=== PATIENT | male | born 1955 | race Caucasian/White ===

== ENCOUNTER → 2016-11-12 | Outpatient (REF) | payer BC ==
[2016-11-12 11:32] LABS: ALBUMIN 3.7 GM/DL (3.2-5.2); ALKALINE PHOSPHATASE 89 U/L (45-117); ALT/SGPT 77 U/L (12-78); ANION GAP 7 MEQ/L (8-16); AST/SGOT 35 U/L (15-37); BILIRUBIN,TOTAL 0.4 MG/DL (0.2-1.0); BLOOD UREA NITROGEN 19 MG/DL (7-18); CALCIUM LEVEL 8.8 MG/DL (8.8-10.2); CARBON DIOXIDE LEVEL 30 MEQ/L (21-32); CHLORIDE LEVEL 104 MEQ/L (98-107); CHOLESTEROL LEVEL 164 MG/DL (<200); CREATININE FOR GFR 1.08 MG/DL (0.70-1.30); GLOMERULAR FILTRATION RATE > 60.0 (>49); GLUCOSE, FASTING 106 MG/DL (80-110); MAGNESIUM LEVEL 1.9 MG/DL (1.8-2.4); POTASSIUM SERUM 4.4 MEQ/L (3.5-5.1); SODIUM LEVEL 141 MEQ/L (136-145); TOTAL PROTEIN 7.4 GM/DL (6.4-8.2); TRIGLYCERIDES LEVEL 88 MG/DL (<150)
== END ==
LOC: M SFHCPLAZ 08:00
PROVIDERS: ATTEND Internal Medicine
DX: I10 Essential (primary) hypertension (principal); E78.00 Pure hypercholesterolemia, unspecified; G47.30 Sleep apnea, unspecified

== ENCOUNTER → 2017-02-06 | Outpatient (CLI) | payer BC ==
--- NOTE | 2017-02-06 11:11 | REP ---
LUMBAR SPINE, FIVE VIEWS: HISTORY: Left sciatica. There is no acute fracture. The L3-4 through L5-S1 intervertebral discs are decreased in height. Vacuum phenomenon is present at the L4-5 and L5-S1 levels. Osteophytes are present on L3 through L5. There is narrowing of the L5-S1 facet joints. IMPRESSION: Degenerative change as described above. Signed by Lion Shah MD 02/06/2017 11:12 A
== END ==
LOC: M RAD 10:14
PROVIDERS: ATTEND Nurse Practitioner Adult Health
DX: M54.32 Sciatica, left side (principal)

== ENCOUNTER → 2017-05-08 | Outpatient (REF) | payer BC ==
[2017-05-08 11:50] LABS: MEAN CORPUSCULAR HGB CONC 34.3 g/dl (32.0-36.5); MEAN CORPUSCULAR VOLUME 93.2 fl (80.0-96.0); PLATELET COUNT, AUTOMATED 165 10^3/uL (150-450); RED CELL DISTRIBUTION WIDTH 13.3 % (11.5-14.5); WHITE BLOOD COUNT 5.8 10^3/uL (4.0-10.0)
[2017-05-08 13:02] LABS: ALBUMIN 3.8 GM/DL (3.2-5.2); ALKALINE PHOSPHATASE 87 U/L (45-117); ALT/SGPT 122 U/L (12-78); ANION GAP 8 MEQ/L (8-16); AST/SGOT 61 U/L (15-37); BILIRUBIN,TOTAL 0.9 MG/DL (0.2-1.0); BLOOD UREA NITROGEN 16 MG/DL (7-18); CARBON DIOXIDE LEVEL 27 MEQ/L (21-32); CHLORIDE LEVEL 106 MEQ/L (98-107); CHOLESTEROL LEVEL 142 MG/DL (<200); CREATININE FOR GFR 0.91 MG/DL (0.70-1.30); GLOMERULAR FILTRATION RATE > 60.0 (>49); GLUCOSE, FASTING 95 MG/DL (80-110); MAGNESIUM LEVEL 1.9 MG/DL (1.8-2.4); POTASSIUM SERUM 4.6 MEQ/L (3.5-5.1); SODIUM LEVEL 141 MEQ/L (136-145); TOTAL PROTEIN 7.6 GM/DL (6.4-8.2); TRIGLYCERIDES LEVEL 89 MG/DL (<150)
== END ==
LOC: M SFHCPLAZ 09:15
PROVIDERS: ATTEND Internal Medicine
DX: G47.30 Sleep apnea, unspecified (principal); I10 Essential (primary) hypertension; E78.00 Pure hypercholesterolemia, unspecified

== ENCOUNTER → 2017-07-27 | Outpatient (CLI) | payer BC ==
[2017-07-27 10:53] LABS: HEMOGLOBIN 18.4 g/dl (14.0-18.0)
[2017-07-27 11:17] LABS: ANION GAP 4 MEQ/L (8-16); BLOOD UREA NITROGEN 18 MG/DL (7-18); CARBON DIOXIDE LEVEL 29 MEQ/L (21-32); CHLORIDE LEVEL 108 MEQ/L (98-107); CREATININE FOR GFR 0.92 MG/DL (0.70-1.30); GLOMERULAR FILTRATION RATE > 60.0 (>49); GLUCOSE, FASTING 130 MG/DL (80-110); POTASSIUM SERUM 4.7 MEQ/L (3.5-5.1); SODIUM LEVEL 141 MEQ/L (136-145)
== END ==
LOC: M ADMPAT 09:27
DX: M54.5 Low back pain (principal)
CPT/HCPCS: 71046

== ENCOUNTER 2017-09-14 05:49 | Day surgery (SDC) | payer BC ==
[2017-09-14] MEDS: PERCOCET 5MG/325MG TAB PO ×2 (06:33→20:41)
[2017-09-14] MEDS: LR 1,000 ML IV ×2 (06:33→11:15)
[2017-09-14] MEDS: GABAPENTIN 300 MG CAP PO ×3 (06:33→20:36)
[2017-09-14] MEDS ORDERED: ROCURONIUM BROMIDE 50 MG/5 ML VIAL As Ordered (07:12)
[2017-09-14] MEDS ORDERED: MIDAZOLAM INJ 2 MG/2 ML VIAL (J2250) As Ordered (07:12)
[2017-09-14] MEDS ORDERED: LIDOCAINE 2% INJ 100 MG/5 ML SDV (FOR ANES.) As Ordered (07:12)
[2017-09-14] MEDS ORDERED: dexameTHASONE 4 MG/ML 1ML VIAL (J1100) As Ordered (07:12)
[2017-09-14] MEDS ORDERED: fentaNYL 250 MCG/5 ML INJECTION (J3010) As Ordered (07:12)
[2017-09-14] MEDS ORDERED: PROPOFOL 200 MG/20 ML VIAL As Ordered (07:12)
[2017-09-14] MEDS: BUPIVACAINE HCL 0.25% 30 ML VIAL As Ordered (08:24)
[2017-09-14] MEDS ORDERED: ePHEDrine INJ 50 MG/ML VIAL As Ordered (08:47)
[2017-09-14] MEDS ORDERED: PHENYLephrine HCL 500 MCG/5 ML (100MCG/ML) SYRINGE (J2370) As Ordered (08:48)
[2017-09-14] MEDS ORDERED: PHENYLEPHRINE INJ 10MG/ML VIAL (J2370) As Ordered (08:48)
[2017-09-14] MEDS ORDERED: NEOSTIGMINE 10 MG/10 ML VIAL (J2710) As Ordered (09:17)
[2017-09-14] MEDS ORDERED: HYDROmorphone HCL 2 MG/ML 1ML VIAL (J1170) As Ordered (09:17)
[2017-09-14] MEDS ORDERED: METOCLOPRAMIDE INJ 10MG/2ML VIAL (J2765) As Ordered (09:17)
[2017-09-14] MEDS ORDERED: GLYCOPYRROLATE INJ 0.2 MG/ML 2 ML VIAL As Ordered (09:17)
[2017-09-14] MEDS: LIDOCAINE W/EPINEPHRINE 1% 20ML VIAL As Ordered (09:24)
[2017-09-14] MEDS: THROMBIN SOLN 20,000 UNITS KIT As Ordered (10:08)
[2017-09-14] MEDS: BACITRACIN PWD 50,000 UNITS VIAL As Ordered (10:08)
[2017-09-14] MEDS: BUPIVACAINE LIPOSOME/PF 1.3% 20 ML VIAL (13.3MG/ML)(EXPAREL) As Ordered (10:35)
[2017-09-14] MEDS ORDERED: fentaNYL 100 MCG/2 ML INJECTION (J3010) As Ordered (11:07)
[2017-09-14] MEDS ORDERED: PERCOCET 5MG/325MG TAB PO ×3 (11:15→14:30)
[2017-09-14] MEDS ORDERED: HYDROmorphone HCL 1 MG/ML SYRINGE (J1170) IV ×2 (11:15→11:30)
[2017-09-14] MEDS ORDERED: PROMETHAZINE INJ 25 MG/ML VIAL (J2550) IV (11:15)
[2017-09-14] MEDS ORDERED: ONDANSETRON 4MG/2ML VIAL (J2405) IV (11:15)
[2017-09-14] MEDS: fentaNYL 100 MCG/2 ML INJECTION (J3010) IV ×4 (11:16→11:36)
[2017-09-14] MEDS: D5W/LR 1,000 ML IV ×2 (11:30→21:30)
[2017-09-14] MEDS: METAMUCIL (PSYLLIUM) PACKET PO (14:49)
[2017-09-14] MEDS: METOPROLOL TART 25 MG TABLET PO (20:39)
[2017-09-15] MEDS: PERCOCET 5MG/325MG TAB PO (04:46)
[2017-09-15] MEDS: LISINOPRIL 20 MG TAB PO (09:23)
[2017-09-15] MEDS: METOPROLOL TART 25 MG TABLET PO (09:23)
[2017-09-15] MEDS: CYCLOBENZAPRINE 10 MG TAB PO (09:23)
[2017-09-15] MEDS: ASPIRIN 81 MG ENTERIC TAB PO (09:23)
[2017-09-15] MEDS: amLODIPine 5 MG TAB PO (09:24)
[2017-09-15] MEDS: PANTOPRAZOLE 40MG TAB (PROTONIX) PO (09:24)
[2017-09-15] MEDS: SERTRALINE 100 MG TAB PO (09:24)
[2017-09-15] MEDS: METAMUCIL (PSYLLIUM) PACKET PO (09:25)
[2017-09-15] MEDS: GABAPENTIN 300 MG CAP PO (09:25)
[2017-09-17] MEDS ORDERED: APIXABAN 5 MG TAB (ELIQUIS) PO (09:00)
== END 2017-09-15 10:15 | disposition home or self-care (01) ==
LOC: M SDC 05:49 → M MS5PR 13:05
DX: M51.16 Intervertebral disc disorders with radiculopathy, lumbar region (principal); I10 Essential (primary) hypertension; I25.10 Atherosclerotic heart disease of native coronary artery without angina pectoris; E78.00 Pure hypercholesterolemia, unspecified; B18.2 Chronic viral hepatitis C; R73.01 Impaired fasting glucose; K21.9 Gastro-esophageal reflux disease without esophagitis; G47.33 Obstructive sleep apnea (adult) (pediatric); Z91.041 Radiographic dye allergy status; Z79.899 Other long term (current) drug therapy; Z79.01 Long term (current) use of anticoagulants; Z85.47 Personal history of malignant neoplasm of testis; Z92.21 Personal history of antineoplastic chemotherapy; Z86.79 Personal history of other diseases of the circulatory system; Z86.59 Personal history of other mental and behavioral disorders
CPT/HCPCS: 63030

== ENCOUNTER → 2018-01-21 | Outpatient (REF) | payer BC ==
[2018-01-21 12:18] LABS: ALBUMIN 3.4 GM/DL (3.2-5.2); ALBUMIN/GLOBULIN RATIO 0.89 (1.00-1.93); ALKALINE PHOSPHATASE 85 U/L (45-117); ALT/SGPT 48 U/L (12-78); AST/SGOT 23 U/L (7-37); BILIRUBIN,DIRECT 0.1 MG/DL (0.0-0.2); BILIRUBIN,TOTAL 0.5 MG/DL (0.2-1.0); TOTAL PROTEIN 7.2 GM/DL (6.4-8.2)
[2018-01-25 11:01] LABS: HEPATITIS C QUANTITATION HCV Not Detected IU/mL (.)
== END ==
LOC: M SFHCPLAZ 08:26
DX: B18.2 Chronic viral hepatitis C (principal)
CPT/HCPCS: 80076

== ENCOUNTER → 2018-03-08 | Outpatient (REF) | payer BC ==
[2018-03-08 12:44] LABS: ALBUMIN 3.7 GM/DL (3.2-5.2); ALBUMIN/GLOBULIN RATIO 0.95 (1.00-1.93); ALKALINE PHOSPHATASE 78 U/L (45-117); ALT/SGPT 44 U/L (12-78); ANION GAP 8 MEQ/L (8-16); AST/SGOT 24 U/L (7-37); BILIRUBIN,TOTAL 0.5 MG/DL (0.2-1.0); BLOOD UREA NITROGEN 15 MG/DL (7-18); CARBON DIOXIDE LEVEL 27 MEQ/L (21-32); CHLORIDE LEVEL 106 MEQ/L (98-107); CHOLESTEROL LEVEL 265 MG/DL (<200); CHOLESTEROL RISK RATIO 8.281 (<5); GLOMERULAR FILTRATION RATE > 60.0 (>49); GLUCOSE, FASTING 98 MG/DL (70-100); HDL CHOLESTEROL 32 MG/DL (>40); LDL CHOLESTEROL 187.6 MG/DL (<100); MAGNESIUM LEVEL 1.9 MG/DL (1.8-2.4); NON-HDL-C 233 MG/DL; POTASSIUM SERUM 4.8 MEQ/L (3.5-5.1); SODIUM LEVEL 141 MEQ/L (136-145); TOTAL PROTEIN 7.6 GM/DL (6.4-8.2); TRIGLYCERIDES LEVEL 227 MG/DL (<150)
[2018-03-08 12:54] LABS: HEMATOCRIT 53.8 % (42.0-52.0); HEMOGLOBIN 18.6 g/dl (13.5-17.5); MEAN CORPUSCULAR HEMOGLOBIN 32.3 pg (27.0-33.0); MEAN CORPUSCULAR HGB CONC 34.6 g/dl (32.0-36.5); MEAN CORPUSCULAR VOLUME 93.4 fl (80.0-96.0); PLATELET COUNT, AUTOMATED 150 10^3/uL (150-450); RED BLOOD COUNT 5.76 10^6/uL (4.30-6.10); RED CELL DISTRIBUTION WIDTH 13.8 % (11.5-14.5)
== END ==
LOC: M SFHCPLAZ 09:42
DX: I25.10 Atherosclerotic heart disease of native coronary artery without angina pectoris (principal); I10 Essential (primary) hypertension; E78.00 Pure hypercholesterolemia, unspecified; G47.30 Sleep apnea, unspecified
CPT/HCPCS: 83735

== ENCOUNTER → 2018-04-12 | Outpatient (REF) | payer BC | LOC: M SFHCLERA 09:12 | DX: R23.8 Other skin changes (principal) | CPT/HCPCS: 88305 ==

== ENCOUNTER → 2020-06-25 | Outpatient (REF) | payer MEDICARE ==
[~2020-06-25] MED LIST: AMLO1TAB24 PO; ASPI81TAEC PO; ATOR1TAB21 PO; ELIQ5TAB PO; FOLI1TAB11 PO; LISI-538 PO; METO1TAB87 PO; METO25TA4 PO; MULT200T7 PO; PANT40TA29 PO; SERT-138 PO
[2020-06-25 14:01] LABS: HEMATOCRIT 51.7 % (42.0-52.0); HEMOGLOBIN 17.2 g/dl (13.5-17.5); MEAN CORPUSCULAR HEMOGLOBIN 31.2 pg (27.0-33.0); MEAN CORPUSCULAR HGB CONC 33.3 g/dl (32.0-36.5); MEAN CORPUSCULAR VOLUME 93.7 fl (80.0-96.0); PLATELET COUNT, AUTOMATED 173 10^3/uL (150-450); RED BLOOD COUNT 5.52 10^6/uL (4.30-6.10); WHITE BLOOD COUNT 7.8 10^3/uL (4.0-10.0)
[2020-06-25 14:38] LABS: ALBUMIN 3.9 GM/DL (3.2-5.2); ALT/SGPT 45 U/L (12-78); BILIRUBIN,TOTAL 0.3 MG/DL (0.2-1.0); BLOOD UREA NITROGEN 20 MG/DL (7-18); CALCIUM LEVEL 9.2 MG/DL (8.8-10.2); CARBON DIOXIDE LEVEL 28 MEQ/L (21-32); CHLORIDE LEVEL 106 MEQ/L (98-107); CHOLESTEROL LEVEL 159 MG/DL (<200); CHOLESTEROL RISK RATIO 4.676 (<5); CREATININE FOR GFR 1.11 MG/DL (0.70-1.30); GLOMERULAR FILTRATION RATE > 60.0 (>49); GLUCOSE, FASTING 103 MG/DL (70-100); HDL CHOLESTEROL 34 MG/DL (>40); LDL CHOLESTEROL 94 MG/DL (<100); NON-HDL-C 125 MG/DL; POTASSIUM SERUM 5.2 MEQ/L (3.5-5.1); SODIUM LEVEL 138 MEQ/L (136-145); TOTAL PROTEIN 7.4 GM/DL (6.4-8.2); TRIGLYCERIDES LEVEL 153 MG/DL (<150)
== END ==
LOC: M SFHCPLAZ 08:07
PROVIDERS: ATTEND Internal Medicine
DX: D75.1 Secondary polycythemia (principal); I10 Essential (primary) hypertension; E78.00 Pure hypercholesterolemia, unspecified; Z12.5 Encounter for screening for malignant neoplasm of prostate
CPT/HCPCS: 36415; 80053; 80061; 83735; 85027; G0103

== ENCOUNTER → 2020-12-31 | Outpatient (REF) | payer MEDICARE ==
[~2020-12-31] MED LIST changes: +ASPI-569 PO; -ASPI81TAEC PO; -LISI-538 PO; +LISI20TA33 PO
[2020-12-31 10:58] LABS: BASO % 0.2 % (0.0-1.0); EOS # 0.3 10^3/uL (0.0-0.5); EOS % 3.4 % (0.0-3.0); HEMATOCRIT 50.8 % (42.0-52.0); HEMOGLOBIN 17.5 g/dl (13.5-17.5); LYMPH # 1.6 10^3/uL (1.5-5.0); LYMPH % 19.1 % (24.0-44.0); MEAN CORPUSCULAR HEMOGLOBIN 31.4 pg (27.0-33.0); MEAN CORPUSCULAR HGB CONC 34.4 g/dl (32.0-36.5); MONO # 0.8 10^3/uL (0.0-0.8); MONO % 9.9 % (2.0-8.0); NEUTROPHILS # 5.6 10^3/uL (1.5-8.5); PLATELET COUNT, AUTOMATED 185 10^3/uL (150-450); RED BLOOD COUNT 5.58 10^6/uL (4.30-6.10); WHITE BLOOD COUNT 8.3 10^3/uL (4.0-10.0)
[2020-12-31 11:27] LABS: ALBUMIN 3.8 GM/DL (3.2-5.2); ALT/SGPT 26 U/L (12-78); BILIRUBIN,TOTAL 0.5 MG/DL (0.2-1.0); BLOOD UREA NITROGEN 17 MG/DL (7-18); CALCIUM LEVEL 8.7 MG/DL (8.8-10.2); CARBON DIOXIDE LEVEL 26 MEQ/L (21-32); CHLORIDE LEVEL 107 MEQ/L (98-107); CHOLESTEROL LEVEL 157 MG/DL (<200); CHOLESTEROL RISK RATIO 4.485 (<5); CREATININE FOR GFR 0.88 MG/DL (0.70-1.30); GLOMERULAR FILTRATION RATE > 60.0 (>49); GLUCOSE, FASTING 99 MG/DL (70-100); HDL CHOLESTEROL 35 MG/DL (>40); LDL CHOLESTEROL 86 MG/DL (<100); MAGNESIUM LEVEL 1.9 MG/DL (1.8-2.4); NON-HDL-C 122 MG/DL; POTASSIUM SERUM 4.3 MEQ/L (3.5-5.1); SODIUM LEVEL 140 MEQ/L (136-145); TOTAL PROTEIN 7.6 GM/DL (6.4-8.2); TRIGLYCERIDES LEVEL 180 MG/DL (<150)
[2020-12-31 12:05] LABS: HEMOGLOBIN A1c 5.8 %
== END ==
LOC: M SFHCPLAZ 08:04
PROVIDERS: ATTEND Internal Medicine
DX: Z12.5 Encounter for screening for malignant neoplasm of prostate (principal); D75.1 Secondary polycythemia; I10 Essential (primary) hypertension; R73.01 Impaired fasting glucose; E78.00 Pure hypercholesterolemia, unspecified
CPT/HCPCS: 36415; 80053; 80061; 83036; 83735; 85025; G0103

== ENCOUNTER → 2021-03-06 | Outpatient (CLI) | payer MEDICARE ==
--- NOTE | 2021-03-06 10:14 | REP ---
INDICATION: TOBACCO DEPENDENCE COMPARISON: None. TECHNIQUE: Axial noncontrast images from the thoracic inlet to the upper abdomen using low-dose lung screening technique (LDCT). FINDINGS: Chronic age-related changes are appreciated. Calcified nodule identified in consistent with prior granulomatous disease. There is a 4 mm noncalcified nodule in the left lower lobe (series 201; image 68). No further suspicious nodule, consolidation or mass. No effusion. No pneumothorax. Limited evaluation of the mediastinum demonstrates extensive atherosclerotic disease and cardiomegaly. IMPRESSION: Lung-RADS category 2. Management recommendations include 12 month low-dose CT follow-up evaluation. <Electronically signed by Alexander Meza > 03/06/21 1019
== END ==
LOC: M RAD 09:44
PROVIDERS: ATTEND Internal Medicine
DX: Z12.2 Encounter for screening for malignant neoplasm of respiratory organs (principal); F17.210 Nicotine dependence, cigarettes, uncomplicated

== ENCOUNTER → 2021-06-26 | Outpatient (CLI) | payer MEDICARE ==
[~2021-06-26] MED LIST changes: +ASPI81TA26 PO; +ROSU10TA6 PO; +ZOLO100T PO
== END ==
LOC: M LABSMTC 11:04
PROVIDERS: ATTEND Anesthesiology
DX: Z01.812 Encounter for preprocedural laboratory examination (principal); Z20.822 Contact with and (suspected) exposure to COVID-19

== ENCOUNTER 2021-07-01 08:01 | Day surgery (SDC) | payer MEDICARE ==
[~2021-07-01] VITALS: Ht 167.6 cm; Wt 85.3 kg
[~2021-07-01 08:01] MED LIST changes: +LIDOCAINE 2% 100MG/5ML SDV (FOR ANES.) As Ordered ONE; +NS 1,000 ML IV ONE; +propofoL 200 MG/20 ML VIAL As Ordered ONE
--- OUTSIDE RECORDS SUMMARY | 2021-07-01 08:05 | CCD | Continuity of Care Document ---
Author Author Duane PEREZ Organization Unknown Address [address], [address] [place] [address] Phone [phone] Care Team Providers Care Contact Lens Inspector Name Role Phone Tyron Stewart M.D. AUTM [phone] Problems Active Problems Provider Date Obesity Maricarmen Ventura, A.N.PHa Onset: 03/15/2012 Body mass index 30+ - obesity Maricarmen Ventura A.N.PHa Onset: Ex-smoker Maricarmen Ventura A.N.P. Onset: 03/17/2011 Obstructive sleep apnea syndrome Maricarmen Ventura, A.N.PHa Onset: 03/10/2011 Essential hypertension MELISSA Collins Onset: 05/14/2021 Social History Type Date Description Comments Sex Unknown ETOH Use 5 A Week Tobacco Use Start: Unknown End: Unknown Patient is a former smoker Recreational Drug Use Denies Drug Use Smoking Status Reviewed: 08/16/20 Patient is a former smoker Allergies and adverse reactions Active Allergies Criticality Reaction | Severity Comments Date Iodinated Diagnostic Agents Unable to assess criticality 07/26/2014 Medications Active Medications SIG Qnty Indications Ordering Provide r Date CPAP Device 8cm LCW Unknown 02/25/2010 Aspirin 325mg Tablets 1 po qd Unknown Lipitor 10mg Tablets 1 po M/W/F only at hs Unknown Folic Acid 1mg Tablets 1 by mouth every day 90tabs Unknown Lisinopril 20mg Tablets 1 by mouth every day Unknown Metoprolol Tartrate 50mg Tablets 1 by mouth every day Unknown Eliquis 5mg Tablets 1 by mouth twice a day Unknown Rosuvastatin Calcium 40mg Tablets Take One Tablet By Mouth Every Day Unknown Sertraline HCL 100mg Tablets Take One Tablet By Mouth Every Day Unknown Amlodipine Besylate 5mg Tablets Take One Tablet By Mouth Twice A Day Unknown Protonix 40mg Tablets DR take one tablet by mouth twice a day Unknown Immunizations CPT Code Status Date Vaccine Lot # 41259 Given 05/24/2014 Influenza Virus Split 3 Yrs And Above For Intramuscular Use Q2036 Given 04/23/2011 Influenza Vaccine 3 Years Of Age Or Older (Flulaval) 07407 Given 05/24/2010 Influenza Virus Split 3 Yrs And Above For Intramuscular Use Vital Signs Date Vital Result Comment 05/14/2021 10:01am BP Systolic 147 mmHg BP Diastolic 83 mmHg Heart Rate 56 /min Body Temperature 98.7 F Height 67 inches 5'7" Weight 189.12 lb BMI (Body Mass Index) 29.6 kg/m2 [place] Body Weight 148 lb Weight 85.787 kg BSA (Body Surface Area) 1.97 m2 08/16/2020 2:21pm BP Systolic 118 mmHg BP Diastolic 84 mmHg Heart Rate 87 /min O2 % BldC Oximetry 96 % Body Temperature 96.9 F Height 67 inches 5'7" Weight 197.00 lb BMI (Body Mass Index) 30.9 kg/m2 [place] Body Weight 148 lb Weight 89.359 kg BSA (Body Surface Area) 2.01 m2 Results Description No Information Available Procedures Description No Information Available Medical Devices Description No Information Available Encounters Description No Information Available Assessments Date Code Description Provider 05/14/2021 Z12.11 Encounter for screening for jeanne gnant neoplasm of colon MELISSA Collins Plan of Treatment Future Appointment(s):* 08/20/2021 8:30 am - Caroline Nicolas at [facility] Pulmonary/Thoracic 05/14/2021 - MELISSA Collins* Z12.11 Encounter for screening for malignant neoplasm of colon Functional Status Description No Information Available Mental Status Description No Information Available Referrals Description No Information Available
--- OUTSIDE RECORDS SUMMARY | 2021-07-01 08:05 | CCD | Continuity of Care Document ---
Author Author Duane PEREZ Organization Unknown Address [address], [address] [place] [address] Phone [phone] Care Team Providers Care Stockkeeper Name Role Phone Tyron Stewart M.D. AUTM [phone] Alfredo Parker M.D. AUTM [phone] Problems Active Problems Provider Date Obesity Maricarmen Ventura A.N.PHa Onset: 03/15/2012 Body mass index 30+ - obesity Maricarmen Ventura A.N.PHa Onset: Ex-smoker Maricarmen Ventura A.N.Meghan Onset: 03/17/2011 Obstructive sleep apnea syndrome Maricarmen Ventura A.NJil Onset: 03/10/2011 Essential hypertension MELISSA Collins Onset: [...] CPT Code Status Date Vaccine Lot # [id number] Given 05/24/2014 Influenza Virus Split 3 Yrs And Above For Intramuscular Use Q2036 Given 04/23/2011 Influenza Vaccine 3 Years Of Age Or Older (Flulaval) 72904 Given 05/24/2010 Influenza Virus Split 3 Yrs And Above For Intramuscular Use Vital Signs Date Vital Result Comment 05/14/2021 10:01am BP Systolic 147 mmHg BP Diastolic 83 mmHg Heart Rate 56 /min Body Temperature 98.7 F Height 67 inches 5'7" Weight 189.12 lb BMI (Body Mass Index) 29.6 kg/m2 [place] Body Weight 148 lb Weight 85.787 kg BSA (Body Surface Area) 1.97 m2 08/16/2020 2:21pm BP Systolic 118 mmHg BP Diastolic 84 mmHg Heart Rate 87 /min O2 % BldC Oximetry 96 % Body Temperature 96.9 F Height 67 inches 5'7" Weight 197.00 lb BMI (Body Mass Index) 30.9 kg/m2 [place] Body Weight 148 lb Weight 89.359 kg BSA (Body Surface Area) 2.01 m2 Results Description No Information Available Procedures Date Code Description Status 05/14/2021 29689 Office/Outpatient New Moderate M DM 45-59 Minutes Completed Medical Devices Description No Information Available Encounters Type Date Location Provider Dx Diagnosis Office Visit 05/14/2021 9:45a [facility] MLEISSA Atkins Z12.11 Encounter for screening for malignant ne oplasm of colon K21.9 Gastro-esophageal reflux dis ease without esophagitis 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 G47.33 Obstructive sleep apnea (kathy lt) (pediatric) Assessments Date Code Description Provider 05/14/2021 Z12.11 Encounter for screening for jeanne gnant neoplasm of colon MELISSA Collins 05/14/2021 K21.9 Gastro-esophageal reflux disease without esophagitis MELISSA Collins 05/14/2021 Z79.01 [facility] (current) use of antic oagulants MELISSA Collins 05/14/2021 G47.33 Obstructive sleep apnea (adult) (pediatric) MELISSA Collins Plan of Treatment Future Appointment(s):* 07/15/2021 10:00 am - Jaxson Brady JR, MD at [facility] * 07/01/2021 10:00 am - Jaxson Brady JR, MD at [facility] * 08/20/2021 8:30 am - Caroline Nicolas at [facility] Pulmonary/Thoracic 05/14/2021 - MELISSA Collins* Z12.11 Encounter for screening for malignant neoplasm of colon * K21.9 Gastro-esophageal reflux disease without esophagitis * Z79.01 [facility] (current) use of anticoagulants * G47.33 Obstructive sleep apnea (adult) (pediatric) Functional Status Description No Information Available Mental Status Description No Information Available Referrals Description No Information Available
--- OUTSIDE RECORDS SUMMARY | 2021-07-01 08:05 | CCD ---
Author Author [facility] Organization [facility] Address Unknown Phone Unavailable Care Team Providers Care Development Consultant Name Role Phone Bhumi Mancilla MD Unavailable Unavailable DiBBhumi lara MD Unavailable Unavailable Bhumi Mancilla MD Unavailable Unavailable Bhumi Mancilla MD Unavailable Unavailable Bhumi Mancilla MD Unavailable Unavailable Bhumi Mancilla MD Unavailable Unavailable Bhumi Mancilla MD Unavailable Unavailable Bhumi Mancilla MD Unavailable Unavailable Tyron Stewart MD Unavailable Unavailable Tyron Stewart MD Unavailable Unavailable Tyron Stewart MD Unavailable Unavailable Tyron Stewart MD Unavailable Unavailable Tyron Stewart MD Unavailable Unavailable Tyron Stewart MD Unavailable Unavailable Tyron Stewart MD Unavailable Unavailable Tyron Stewart MD Unavailable Unavailable Tyron Stewart MD Unavailable Unavailable Tyron Stewart MD Unavailable Unavailable Tyron Stewart MD Unavailable Unavailable Tyron Stewart MD Unavailable Unavailable Tyron Stewart MD Unavailable Unavailable Tyron Stewart MD Unavailable Unavailable Tyron Stewart MD Unavailable Unavailable Tyron Stewart MD Unavailable Unavailable Tyron Stewart MD Unavailable Unavailable Tyron Stewart MD Unavailable Unavailable Tyron Stewart MD Unavailable Unavailable Tyron Stewart MD Unavailable Unavailable Tyron Stewart MD Unavailable Unavailable Tyron Stewart MD Unavailable Unavailable Tyron Stewart MD Unavailable Unavailable Tyron Stewart MD Unavailable Unavailable Tyron Stewart MD Unavailable Unavailable Tyron Stewart MD Unavailable Unavailable Tyron Stewart MD Unavailable Unavailable Tyron Stewart MD Unavailable Unavailable Tyron Stewart MD Unavailable Unavailable Tyron Stewart MD Unavailable Unavailable Tyron Stewart MD Unavailable Unavailable Tyron Stewart MD Unavailable Unavailable Tyron Stewart MD Unavailable Unavailable Tyron Stewart MD Unavailable Unavailable Tyron Stewart MD Unavailable Unavailable Tyron Stewart MD Unavailable Unavailable Tyron Stewart MD Unavailable Unavailable Tyron Stewart MD Unavailable Unavailable Tyron Stewart MD Unavailable Unavailable Tyron Stewart MD Unavailable Unavailable Tyron Stewart MD Unavailable Unavailable Tyron Stewart MD Unavailable Unavailable Tyron Stewart MD Unavailable Unavailable Tyron Stewart MD Unavailable Unavailable Tyron Stewart MD Unavailable Unavailable Tyron Stewart MD Unavailable Unavailable Tyron Stewart MD Unavailable Unavailable Tyron Stewart MD Unavailable Unavailable Tyron Stewart MD Unavailable Unavailable Tyron Stewart MD Unavailable Unavailable Tyron Stewart MD Unavailable Unavailable Tyron tSewart MD Unavailable Unavailable Tyron Stewart MD Unavailable Unavailable Tyron Stewart MD Unavailable Unavailable Tyron Stewart MD Unavailable Unavailable Tyron Stewart MD Unavailable Unavailable Tyron Stewart MD Unavailable Unavailable Tyron Stewart MD Unavailable Unavailable Tyron Stewart MD Unavailable Unavailable Tyron Stewart MD Unavailable Unavailable Tyron Stewart MD Unavailable Unavailable Tyron Stewart MD Unavailable Unavailable Tyron Stewart MD Unavailable Unavailable Tyron Stewart MD Unavailable Unavailable Tyron Stewart MD Unavailable Unavailable Tyron Stewart MD Unavailable Unavailable Tyron Stewart MD Unavailable Unavailable Tyron Stewart MD Unavailable Unavailable Tyron Stewart MD Unavailable Unavailable Tyron Stewart MD Unavailable Unavailable Tyron Stewart MD Unavailable Unavailable Tyron Stewart MD Unavailable Unavailable Tyron Stewart MD Unavailable Unavailable Tyron Stewart MD Unavailable Unavailable Tyron Stewart MD Unavailable Unavailable Tyron Stewart MD Unavailable Unavailable Tyron Stewart MD Unavailable Unavailable Tyron Stewart MD Unavailable Unavailable Tyron Stewart MD Unavailable Unavailable Tyron Stewart MD Unavailable Unavailable Hamo, M June CORE DROPPER Unavailable Unavailable Hamo, M June CORE DROPPER Unavailable Unavailable Hamo, M June CORE DROPPER Unavailable Unavailable Hamo, M June CORE DROPPER Unavailable Unavailable Hamo, M June CORE DROPPER Unavailable Unavailable Hamo, M June CORE DROPPER Unavailable Unavailable Hamo, M June CORE DROPPER Unavailable Unavailable Hamo, M June CORE DROPPER Unavailable Unavailable Hamo, M June CORE DROPPER Unavailable Unavailable Hamo, M June CORE DROPPER Unavailable Unavailable Hamo, M June CORE DROPPER Unavailable Unavailable Hamo, M June CORE DROPPER Unavailable Unavailable Hamo, M June CORE DROPPER Unavailable Unavailable Hamo, M June CORE DROPPER Unavailable Unavailable Hamo, M June CORE DROPPER Unavailable Unavailable Hamo, M June CORE DROPPER Unavailable Unavailable Hamo, M June CORE DROPPER Unavailable Unavailable Hamo, M June CORE DROPPER Unavailable Unavailable Hamo, M June CORE DROPPER Unavailable Unavailable Wendie, Latonia Will MD Unavailable Unavailable Wendie, Latonia Will MD Unavailable Unavailable Latonia Pressley MD Unavailable Unavailable Latonia Pressley MD Unavailable Unavailable Wendie, Latonia Will MD Unavailable Unavailable Latonia Pressley MD Unavailable Unavailable Addison, L Lisa RPA Unavailable Unavailable Addison, L Lisa RPA Unavailable Unavailable Addison, L Lisa RPA Unavailable Unavailable Addison, L Lisa RPA Unavailable Unavailable Addison, L Lisa RPA Unavailable Unavailable Addison, L Lisa RPA Unavailable Unavailable Addison, L Lisa RPA Unavailable Unavailable Addison, L Lisa RPA Unavailable Unavailable Addison, L Lisa RPA Unavailable Unavailable Addison, L Lisa RPA Unavailable Unavailable Addison, L Lisa RPA Unavailable Unavailable Addison, L Lisa RPA Unavailable Unavailable Addison, L Lisa RPA Unavailable Unavailable Addison, L Lisa RPA Unavailable Unavailable Addison, L Lisa RPA Unavailable Unavailable Addison, L Lisa RPA Unavailable Unavailable Addison, L Lisa RPA Unavailable Unavailable Addison, L Lisa RPA Unavailable Unavailable Addison, L Lisa RPA Unavailable Unavailable Addison, L Lisa RPA Unavailable Unavailable Addison, L Lisa RPA Unavailable Unavailable Addison, L Lisa RPA Unavailable Unavailable Addison, L Lisa RPA Unavailable Unavailable Addison, L Lisa RPA Unavailable Unavailable Addison, L Lisa RPA Unavailable Unavailable Addison, L Lisa RPA Unavailable Unavailable Addison, L Lisa RPA Unavailable Unavailable Addison, L Lisa RPA Unavailable Unavailable Addison, L Lisa RPA Unavailable Unavailable Addison, L Lisa RPA Unavailable Unavailable Addison, L Lisa RPA Unavailable Unavailable Addison, L Lisa RPA Unavailable Unavailable Re-disclosure Warning The records that you are about to access may contain information from federally-assisted alcohol or drug abuse programs. If such information is present, then the following federally mandated warning applies: This information has been disclosed to you from records protected by federal confidentiality rules (42 CFR part 2). The federal rules prohibit you from making any further disclosure of this information unless further disclosure is expressly permitted by the written consent of the person to whom it pertains or as otherwise permitted by 42 CFR part 2. A general authorization for the release of medical or other information is NOT sufficient for this purpose. The Federal rules restrict any use of the information to criminally investigate or prosecute any alcohol or drug abuse patient.The records that you are about to access may contain highly sensitive health information, the redisclosure of which is protected by Article 27-F of the [facility] Public Health law. If you continue you may have access to information: Regarding HIV / AIDS; Provided by facilities licensed or operated by the [facility] Office of Mental Health; or Provided by the [facility] Office for People With Developmental Disabilities. If such information is present, then the following [facility] mandated warning applies: This information has been disclosed to you from confidential records which are protected by state law. State law prohibits you from making any further disclosure of this information without the specific written consent of the person to whom it pertains, or as otherwise permitted by law. Any unauthorized further disclosure in violation of state law may result in a fine or snf sentence or both. A general authorization for the release of medical or other information is NOT sufficient authorization for further disc losure. Allergies and Adverse Reactions Type Description Substance Reaction Status Data Source(s ) Drug allergy Iodinated Contrast Media Iodinated Contrast Medi a hives, itching (Opti-Ray 350) [facility] Family History Family Member Name Family Member Gender Family Member Status Date o f Status Description Data Source(s) Unknown Female Problem MEDENT ([facility]) Unknown Female Problem [facility] ([facility]) Encounters Encounter Providers Location Date Indications Data Source(s ) Outpatient Attender: Lisa Tillman/Masha/Lizzie no 05/14/2021 09:45:00 AM EDT MEDENT ([facility]) [place] [address] [facility] [facility] [address] 12/31/2020 12:00:00 AM EDT eCW1 ([facility]) Unknown [address] [facility] [address] 11/29/2020 12:00:00 AM EDT eCW1 ([facility]) Outpatient Attender: Suman Pressley MDReferrer: Tyron Stewart MD 11/09/2020 01:48:00 PM EDT - 11/09/2020 02:32:00 PM EDT [facility] Emergency Attender: Jason Mancilla MD 09:37:00 AM EDT - 11/08/2020 11:09:00 AM EDT ANKLE PAIN [facility] ANKLE PAIN Patient discharged. Outpatient Attender: June Hughes NP [facility] 08/14 10:15:00 AM EST MEDENT ([facility]) Office Visit, Est Pt., Level 4 PC [address] [place] [address] 06/25/2020 12:00:00 AM EST eCW1 ([facility]) Immunizations Vaccine Date Status Description Data Source(s) pneumococcal polysaccharide PPV23 12/31/2020 09:26:00 AM EDT comple brett eCW1 ([facility]) COVID-19 dose #2 given elsewhere Unspecified 11/09/2020 06:0 8:00 AM EDT completed eCW1 ([facility]) COVID-19 VACCINE Moderna 11/09/2020 12:00:00 AM EDT completed [place] Vaccine Series Complete: YESThis Data wa s Submitted to [facility] Via [employer]. COVID-19 dose #1 given elsewhere Unspecified 10/12/2020 06:0 8:00 AM EDT completed eCW1 ([facility]) COVID-19 VACCINE Moderna 10/12/2020 12:00:00 AM EDT completed [place] Vaccine Series Complete: NOThis Data was Submitted to [facility] Via [employer]. influenza, recombinant, quadrIvalent,injectable, prese rvative free 06/25/2020 01:33:00 PM EST completed eCW1 ([facility]) influenza, recombinant, quadrIvalent,injectable, prese rvative free 06/25/2020 01:33:00 PM EST completed eCW1 ([facility]) influenza, recombinant, quadrIvalent,injectable, prese rvative free 06/25/2020 01:33:00 PM EST completed eCW1 ([facility]) Medications Medication Brand Name Start Date Product Form Dose Route Admi nistrative Instructions Pharmacy Instructions Status Indications Reaction Description Data Source(s) SUPREP BOWEL PREP KIT 17.5-3.13-1.6 gram SODIUM, POTASSIUM,M AG SULFATES 06/17/2021 12:00:00 AM EST recon soln 354 TAKE DIRECTED PER DOCTOR'S BOWEL PREP INSTRUCTIONS TAKE DIRECTED PER DOCTOR'S BOWEL PREP INSTRUCTIONS SOLD: 06/23/2021 [facility] 5 mg 04/15/2021 12:00:00 AM EDT tablet 180 TAKE ONE TABLET BY MOUTH TWICE A DAY TAKE ONE TABLET BY MOUTH TWICE A DAY SOLD: 04/16/2021 [facility] 1 mg 01/04/2021 12:00:00 AM EDT tablet 52 TAKE ONE TABLET BY MOUTH EVERY DAY TAKE ONE TABLET BY MOUTH EVERY DAY SOLD: 04/16/2021 [facility] Rosuvastatin calcium 10 MG Oral Tablet ROSUVASTATIN CALCIUM 01/04/2021 12:00:00 AM EDT tablet 52 TAKE ONE TABLET BY MOUTH MIRELA RY DAY TAKE ONE TABLET BY MOUTH EVERY DAY SOLD: 04/16/2021 [facility] Rosuvastatin calcium 10 MG Oral Tablet ROSUVASTATIN CALCIUM 01/04/2021 12:00:00 AM EDT tablet 90 TAKE ONE TABLET BY MOUTH MIRELA RY DAY TAKE ONE TABLET BY MOUTH EVERY DAY SOLD: 01/04/2021 [facility] 5 mg 01/04/2021 12:00:00 AM EDT tablet 180 TAKE ONE TABLET BY MOUTH TWICE A DAY TAKE ONE TABLET BY MOUTH TWICE A DAY SOLD: 01/04/2021 [facility] 5 mg 01/04/2021 12:00:00 AM EDT tablet 104 TAKE ONE TABLET BY MOUTH TWICE A DAY TAKE ONE TABLET BY MOUTH TWICE A DAY SOLD: 04/16/2021 [facility] 1 mg 01/04/2021 12:00:00 AM EDT tablet 90 TAKE ONE TABLET BY MOUTH EVERY DAY TAKE ONE TABLET BY MOUTH EVERY DAY SOLD: 01/04/2021 [facility] 50 mg 01/04/2021 12:00:00 AM EDT tablet 180 TAKE ONE TABLET BY MOUTH TWICE A DAY TAKE ONE TABLET BY MOUTH TWICE A DAY SOLD: 01/04/2021 [facility] 50 mg 01/04/2021 12:00:00 AM EDT tablet 104 TAKE ONE TABLET BY MOUTH TWICE A DAY TAKE ONE TABLET BY MOUTH TWICE A DAY SOLD: 04/16/2021 [facility] 100 mg 11/21/2020 12:00:00 AM EDT tablet 70 TAKE ONE TABLET BY MOUTH EVERY DAY TAKE ONE TABLET BY MOUTH EVERY DAY SOLD: 03/27/2021 [facility] 100 mg 11/21/2020 12:00:00 AM EDT tablet 90 TAKE ONE TABLET BY MOUTH EVERY DAY TAKE ONE TABLET BY MOUTH EVERY DAY SOLD: 11/21/2020 [facility] 50 mg 11/09/2020 12:00:00 AM EDT tablet 30 TAKE ONE TABLET BY MOUTH EVERY SIX HOURS NEEDED FOR PAIN MAXIMUM DAILY DOSE = FOUR TABLETS TAKE ONE TABLET BY MOUTH EVERY SIX HOURS NEEDED FOR PAIN MAXIMUM DAILY DOSE = FOUR TABLETS SOLD: 11/21/2020 [facility] 5 mg 10/26/2020 12:00:00 AM EDT tablet 60 TAKE ONE TABLET BY MOUTH TWICE A DAY TAKE ONE TABLET BY MOUTH TWICE A DAY SOLD: 02/26/2021 [facility] 5 mg 10/26/2020 12:00:00 AM EDT tablet 60 TAKE ONE TABLET BY MOUTH TWICE A DAY TAKE ONE TABLET BY MOUTH TWICE A DAY SOLD: 11/03/2020 [facility] 5 mg 10/26/2020 12:00:00 AM EDT tablet 60 TAKE ONE TABLET BY MOUTH TWICE A DAY TAKE ONE TABLET BY MOUTH TWICE A DAY SOLD: 01/04/2021 [facility] 1 mg 10/14/2020 12:00:00 AM EDT tablet 90 TAKE ONE TABLET BY MOUTH EVERY DAY TAKE ONE TABLET BY MOUTH EVERY DAY SOLD: 10/19/2020 [facility] 20 mg 08/06/2020 12:00:00 AM EST tablet 90 TAKE ONE TABLET BY MOUTH EVERY DAY TAKE ONE TABLET BY MOUTH EVERY DAY SOLD: 02/25/2021 [facility] Lisinopril 20 MG Oral Tablet LISINOPRIL 08/06/2020 12:00:00 AM EST tab let 90 TAKE ONE TABLET BY MOUTH EVERY DAY TAKE ONE TABLET BY MOUTH EVERY DAY SOLD: 11/21/2020 [facility] 20 mg 08/06/2020 12:00:00 AM EST tablet 90 TAKE ONE TABLET BY MOUTH EVERY DAY TAKE ONE TABLET BY MOUTH EVERY DAY SOLD: 08/11/2020 [facility] pantoprazole 40 MG Delayed Release Oral Tablet PANTOPRAZOLE SODIUM 06/25/2020 12:00:00 AM EST tablet,delayed release (DR/EC) 40 T JENNA ONE TABLET BY MOUTH THREE TIMES A WEEK TAKE ONE TABLET BY MOUTH THREE TIMES A WEEK SOLD: 07/03/2020 [facility] 1 mg 06/25/2020 12:00:00 AM EST tablet 60 TAKE ONE TABLET BY MOUTH TWICE A DAY TAKE ONE TABLET BY MOUTH TWICE A DAY SOLD: 07/03/2020 [facility] pantoprazole 40 MG Delayed Release Oral Tablet PANTOPRAZOLE SODIUM 06/25/2020 12:00:00 AM EST tablet,delayed release (DR/EC) 40 T JENNA ONE TABLET BY MOUTH THREE TIMES A WEEK TAKE ONE TABLET BY MOUTH THREE TIMES A WEEK SOLD: 12/20/2020 [facility] pantoprazole 40 MG Delayed Release Oral Tablet PANTOPRAZOLE SODIUM 06/25/2020 12:00:00 AM EST tablet,delayed release (DR/EC) 30 T JENNA ONE TABLET BY MOUTH THREE TIMES A WEEK TAKE ONE TABLET BY MOUTH THREE TIMES A WEEK SOLD: 06/23/2021 [facility] pantoprazole 40 MG Delayed Release Oral Tablet PANTOPRAZOLE SODIUM 06/25/2020 12:00:00 AM EST tablet,delayed release (DR/EC) 30 T JENNA ONE TABLET BY MOUTH THREE TIMES A WEEK TAKE ONE TABLET BY MOUTH THREE TIMES A WEEK SOLD: 03/27/2021 [facility] 0.5 mg (11)- 1 mg (42) 06/25/2020 12:00:00 AM EST tablets,do se pack 53 DIRECTED DIRECTED SOLD: 07/03/2020 [facility] Chantix Starting Month Saran 0.5 MG X 11 & 1 MG X 42 Hanna ntix Starting Month Saran 0.5 MG X 11 & 1 MG X 42 06/25/2020 12:00:00 AM EST active Chantix Starting Month Saran 0.5 MG X 11 & 1 MG X 42 eCW1 ([facility]) Chantix Starting Month Saran 0.5 MG X 11 & 1 MG X 42 Hanna ntix Starting Month Saran 0.5 MG X 11 & 1 MG X 42 06/25/2020 12:00:00 AM EST active Chantix Starting Month Saran 0.5 MG X 11 & 1 MG X 42 eCW1 ([facility]) 81 mg 04/12/2020 12:00:00 AM EDT tablet,delayed release (DR/EC) 90 TAKE ONE TABLET BY MOUTH EVERY DAY STOP TAKING CLOPIDOGREL TAKE ONE TABLET BY MOUTH EVERY DAY STOP TAKING CLOPIDOGREL SOLD: 07/22/2020 [facility] 81 mg 04/12/2020 12:00:00 AM EDT tablet,delayed release (DR/EC) 90 TAKE ONE TABLET BY MOUTH EVERY DAY STOP TAKING CLOPIDOGREL TAKE ONE TABLET BY MOUTH EVERY DAY STOP TAKING CLOPIDOGREL SOLD: 11/03/2020 [facility] 81 mg 04/12/2020 12:00:00 AM EDT tablet,delayed release (DR/EC) 90 TAKE ONE TABLET BY MOUTH EVERY DAY STOP TAKING CLOPIDOGREL TAKE ONE TABLET BY MOUTH EVERY DAY STOP TAKING CLOPIDOGREL SOLD: 02/25/2021 [facility] Rosuvastatin calcium 40 MG Oral Tablet ROSUVASTATIN CALCIUM 04/10/2020 12:00:00 AM EDT tablet 90 TAKE ONE TABLET BY MOUTH MIRELA TAKE ONE TABLET BY MOUTH EVERY DAY SOLD: 10/19/2020 [facility] Rosuvastatin calcium 40 MG Oral Tablet ROSUVASTATIN CALCIUM 04/10/2020 12:00:00 AM EDT tablet 90 TAKE ONE TABLET BY MOUTH MIRELA DAY TAKE ONE TABLET BY MOUTH EVERY DAY SOLD: 07/22/2020 [facility] 50 mg 04/10/2020 12:00:00 AM EDT tablet extended release 24 hr 90 TAKE ONE TABLET BY MOUTH EVERY DAY TAKE ONE TABLET BY MOUTH EVERY DAY SOLD: 07/22/2020 [facility] 5 mg 02/27/2020 12:00:00 AM EDT tablet 180 TAKE ONE TABLET BY MOUTH TWICE A DAY TAKE ONE TABLET BY MOUTH TWICE A DAY SOLD: 10/04/2020 [facility] 5 mg 02/27/2020 12:00:00 AM EDT tablet 180 TAKE ONE TABLET BY MOUTH TWICE A DAY TAKE ONE TABLET BY MOUTH TWICE A DAY SOLD: 06/18/2020 [facility] 5 mg 12/13/2019 12:00:00 AM EDT tablet 60 TAKE ONE TABLET BY MOUTH TWICE A DAY TAKE ONE TABLET BY MOUTH TWICE A DAY SOLD: 08/27/2020 [facility] 5 mg 12/13/2019 12:00:00 AM EDT tablet 60 TAKE ONE TABLET BY MOUTH TWICE A DAY TAKE ONE TABLET BY MOUTH TWICE A DAY SOLD: 05/09/2020 [facility] 5 mg 12/13/2019 12:00:00 AM EDT tablet 60 TAKE ONE TABLET BY MOUTH TWICE A DAY TAKE ONE TABLET BY MOUTH TWICE A DAY SOLD: 07/22/2020 [facility] 5 mg 12/13/2019 12:00:00 AM EDT tablet 60 TAKE ONE TABLET BY MOUTH TWICE A DAY TAKE ONE TABLET BY MOUTH TWICE A DAY SOLD: 10/04/2020 [facility] 5 mg 12/13/2019 12:00:00 AM EDT tablet 60 TAKE ONE TABLET BY MOUTH TWICE A DAY TAKE ONE TABLET BY MOUTH TWICE A DAY SOLD: 06/18/2020 [facility] 100 mg 10/25/2019 12:00:00 AM EDT tablet 90 TAKE ONE TABLET BY MOUTH EVERY DAY TAKE ONE TABLET BY MOUTH EVERY DAY SOLD: 05/09/2020 [facility] 100 mg 10/25/2019 12:00:00 AM EDT tablet 90 TAKE ONE TABLET BY MOUTH EVERY DAY TAKE ONE TABLET BY MOUTH EVERY DAY SOLD: 08/11/2020 [facility] 1 mg 09/14/2019 12:00:00 AM EST tablet 90 TAKE 1 TABLET BY MOUTH ONCE DAILY TAKE 1 TABLET BY MOUTH ONCE DAILY SOLD: 07/12/2020 [facility] 20 mg 07/12/2019 12:00:00 AM EST tablet 90 TAKE ONE TABLET BY MOUTH EVERY DAY TAKE ONE TABLET BY MOUTH EVERY DAY SOLD: 05/09/2020 [facility] Insurance Providers Payer name Policy type / Coverage type Policy ID Covered alliance party ID Covered alliance party's relationship to miller Policy Miller Plan Information O BLUE [id number] Patient [id number] SELF PAY UNAVAILABLE Patient UNAVAILA BLE Risk [employer] website () Workers Compensation [id number] Self [id number] Risk [employer]) Workers Compensation [id number] Self [id number] Risk [place] [employer] () Workers Compensation [id number] Self [id number] [place] [employer] () Workers Compensation [id number] Self [id number] Risk [place] [employer] () Workers Compensation [id number] Self [id number] Risk [place] [employer] () Workers Compensation [id number] Self [id number] Risk [place] [employer] () Workers Compensation [id number] Self [id number] [employer] Commercial [id number] Self [id number] [place] PPO 302/307 [id number] SP [id number] [place] [id number] Self [id number] [place] [id number] Self [id number] [place] [id number] Self [id number] BS [place] [employer] [id number] Self [id number] Bshmo ZFC,Yot,Yoy,ZFH,ZFP Medigap Part B [id number] Self [id number] [facility] [id number] Self [id number] Bshmo ZFC,Yot,Yoy,ZFH,ZFP Medigap Part B [id number] Self [id number] [facility] [id number] Self [id number] [facility] [id number] VYS [id number] Bshmo ZFC,Yot,Yoy,ZFH,ZFP Medigap Part B [id number] Self [id number] [facility] [employer] [id number] Self [id number] Bshmo ZFC,Yot,Yoy,ZFH,ZFP Medigap Part B [id number] [id number] Self [id number] [facility] [employer] [id number] Self [id number] [employer] [place] [employer] [employer] [id number] Self V [id number] Bshmo ZFC,Yot,Yoy,ZFH,ZFP Medigap Part B [id number] [id number] Self [id number] [place] [employer] [id number] Self [id number] Bshmo ZFC,Yot,Yoy,ZFH,ZFP Medigap Part B [id number] Self [id number] BS [place] [employer] [id number] Self [id number] [place] PPO 302/307 [id number] SP [id number] [facility] [employer] [id number] Self V [id number] [facility] [employer] [id number] Self BCBS [place] 304/[id number] SP [id number] AETNA MEDICARE [id number] SP [id number] RISK [place] [employer] [id number] SP [id number] AETNA MEDICARE [id number] SP [id number] BCBS [place] PPO 302/307 [id number] SP [id number] ANSI-Commercial [id number] ANSI-Commercial [id number] ANSI-Commercial [id number] ANSI-Commercial [id number] ANSI-Commercial [id number] [facility] [employer] [id number] Self V [id number] ANSI-Commercial [id number] ANSI-Commercial [id number] ANSI-Commercial [id number] [employer] [id number] Self V [id number] Bshmo ZFC,Yot,Yoy,ZFH,ZFP Medigap Part B [id number] Self [id number] Problems, Conditions, and Diagnoses Code Display Name Description Problem Type Effective Dates Data Source(s) [id number] Essential hypertension Essential hypertension Problem 05/14/2021 12:00:00 AM EDT VIVIANA ([facility], ) R97.20 [id number] Elevated PSA Problem 01/03/2021 12:00:00 AM EDT eCW1 ([facility]) Z23 [id number] Immunization due Problem 12/31/2020 12:00:00 AM EDT eCW1 ([facility]) F17.201 [id number] Tobacco dependence in remission Problem 12/31/2020 12:00:00 AM EDT eCW1 ([facility]) [id number] Chronic ischemic heart disease Chronic ischemic heart disease Problem 08/14/2020 12:00:00 AM EST MEDENT ([facility]) F17.200 [id number] Tobacco dependence Problem 06/25/2020 12:00: 00 AM EST eCW1 ([facility]) Surgeries/Procedures Procedure Description Date Indications Data Source(s) OFFICE OUTPATIENT NEW 45 MINUTES 05/14/2021 12:00:00 A M EDT MEDENT ([facility], ) PNEUMOCOCCAL POLYSAC VACCINE 23-V 2 />YR SUBQ/IM 12/31 12:00:00 AM EDT eC ([facility]) Radiography of foot (procedure) 11/08/2020 09:55:00 AM EDT [facility] X-ray of left ankle (procedure) 11/08/2020 09:55:00 AM EDT [facility] Immunization: Flublok Quadrivalent (18 years & older) 0.5mL IM (Influenza) 06/25/2020 12:00:00 AM EST eCW1 ([facility]) Results ID Date Data Source PSA SCREENING 12/31/2020 12:00:00 AM EDT eCW ([facility]) Name Value Range Interpretation Code Description Data Valeri rce(s) Supporting Document(s) 4.22 < 4.00 PSA SCREENING W ([facility]) ID Date Data Source MAGNESIUM LEVEL 12/31/2020 12:00:00 AM EDT eC ([facility]) Name Value Range Interpretation Code Description Data Valeri rce(s) Supporting Document(s) 1.9 1.8-2.4 MAGNESIUM LEVEL [facility] ([facility]) ID Date Data Source LIPID PANEL (CARDIAC RISK) 12/31/2020 12:00:00 AM EDT eCW1 ( [facility]) Name Value Range Interpretation Code Description Data Valeri rce(s) Supporting Document(s) Triglyceride [Mass/volume] in Serum or Plasma by calculation 180 <150 TRIGLYCERIDES LEVEL eCW1 ([facility]) Cholesterol [Moles/volume] in Serum or Plasma 157 <200 CHOLESTEROL LEVEL eCW1 ([facility]) Cholesterol in HDL [Moles/volume] in Serum or Plasma 35 >40 HDL CHOLESTEROL eCW1 ([facility]) Cholesterol in LDL [Mass/volume] in Serum or Plasma by calculation 86 <100 LDL CHOLESTEROL eCW1 ([facility]) 4.485 <5 CHOLESTEROL RISK RATIO eCW1 ([facility]) 122 NON-HDL-C eCW1 ([facility]) ID Date Data Source [id number] 12/31/2020 12:00:00 AM EDT eCW1 ([facility]) Name Value Range Interpretation Code Description Data Valeri rce(s) Supporting Document(s) Hemoglobin A1c/Hemoglobin.total in Blood 5.8 HEMOGLOBIN A1c eCW1 ([facility]) ID Date Data Source Comprehensive Metabolic Profile (CMP) 12/31/2020 12:00:00 AM EDT eCW1 ([facility]) Name Value Range Interpretation Code Description Data Valeri rce(s) Supporting Document(s) 99 70-100 GLUCOSE, FASTING eCW1 ([facility]) 17 7-18 BLOOD UREA NITROGEN eCW1 ([facility]) > 60.0 >49 GLOMERULAR FILTRATION RATE eCW 1 ([facility]) 0.88 0.70-1.30 CREATININE FOR GFR eCW1 (Replaced by [facility]) 107 98-107 CHLORIDE LEVEL eCW1 ([facility]) 140 136-145 SODIUM LEVEL eCW1 ([facility]) 4.3 3.5-5.1 POTASSIUM SERUM eCW1 ([facility]) 8.7 8.8-10.2 CALCIUM LEVEL eCW1 ([facility]) 26 21-32 CARBON DIOXIDE LEVEL eCW1 ([facility]) 26 12-78 ALT/SGPT eCW1 ([facility]) 7 7-37 AST/SGOT eCW1 ([facility]) 74 45-117 ALKALINE PHOSPHATASE eCW1 ([facility]) 0.5 0.2-1.0 BILIRUBIN,TOTAL eCW1 ([facility]) 1.0 ALBUMIN/GLOBULIN RATIO eCW1 ([facility]) 3.8 3.2-5.2 ALBUMIN eCW1 ([facility]) 7.6 6.4-8.2 TOTAL PROTEIN eCW1 ([facility]) ID Date Data Source CBC with Differential 12/31/2020 12:00:00 AM EDT eCW1 (Replaced by [facility]) Name Value Range Interpretation Code Description Data Valeri rce(s) Supporting Document(s) 8.3 4.0-10.0 WHITE BLOOD COUNT eCW1 ([facility]) 5.58 4.30-6.10 RED BLOOD COUNT eCW1 ([facility]) 17.5 13.5-17.5 HEMOGLOBIN eCW1 ([facility]) 50.8 42.0-52.0 HEMATOCRIT eCW1 ([facility]) 31.4 27.0-33.0 MEAN CORPUSCULAR HEMOGLOB IN eCW1 ([facility]) 91.0 80.0-96.0 MEAN CORPUSCULAR VOLUME e CW1 ([facility]) 12.3 11.5-14.5 RED CELL DISTRIBUTION WID TH eCW1 ([facility]) 34.4 32.0-36.5 MEAN CORPUSCULAR HGB CONC eCW1 ([facility]) 67.0 36.0-66.0 NEUTROPHILS % eCW1 ([facility]) 185 150-450 PLATELET COUNT, AUTOMATED eCW1 ([facility]) 9.9 2.0-8.0 MONO % eCW1 ([facility]) 19.1 24.0-44.0 LYMPH % eCW1 ([facility]) 3.4 0.0-3.0 EOS % eCW1 ([facility]) 1.6 1.5-5.0 LYMPH # eCW1 ([facility]) 5.6 1.5-8.5 NEUTROPHILS # eCW1 ([facility]) 0.2 0.0-1.0 BASO % eCW1 ([facility]) 0.8 0.0-0.8 MONO # eCW1 ([facility]) 0.3 0.0-0.5 EOS # eCW1 ([facility]) 0.0 0.0-0.2 BASO # eCW1 ([facility]) ID Date Data Source [id number] 11/09/2020 01:51:00 PM EDT [facility] Patient Name: FRANSICO MCCLELLAND OB: 1955 Sex: M Pt Unit #: [id number] Location:[facility] Provider: Visit Date/Time: 11/09/20 Primary Insurance: MEDICARE [employer] Secondary Insurance: Self Pay Intake Vital Signs 11/09/20 13:53 Current Height 5 ft 6 in Current Weight 195 lb Weight Measurement Method Stated by Patient BMI 31.4 BP 110/78 Blood Pressure Location Lt brachial Position Sitting Respiration 18 Pulse 94 Temp 97.8 F Pulse Oximetry (%) 95 Oxygen Delivery Method room air Intake Visit Reasons: ER f/u right ankle injury Is patient in pain?: Yes Pain scale (1-10): 5 Allergies Iodinated Contrast Media [IV DYE, IODINE CONTAINING] Allergy (Unknown, Verified 11/09/20 14:34) hives, itching (Opti-Ray 350) Medications - Last Reconciled 11/09/20 by Suman Pressley MD amiodarone 200 mg PO DAILY amlodipine 2.5 mg PO HS apixaban (Eliquis) 5 mg PO BID aspirin (Adult Low Dose Aspirin) 81 mg PO HS atorvastatin (Lipitor) 10 mg PO MOWEFR folic acid 1 mg PO DAILY lisinopril- hydrochlorothiazide 20-12.5 mg 1 tab PO HS metoprolol tartrate 25 mg PO BID pantoprazole 20 mg PO DAILY HIV Testing Offer - ages 13-64 Requirement for HIV testing offer been met?: Declines today. Pretest education received and ackn owledged Coronavirus Screening Screening Are you currently positive or on isolation for COVID ?: No Do you have any NEW signs of one or more of the following?: no symptoms Do you have NEW signs of at least two of the following?: no symptoms HPI Additional HPI HPI Details: New patient is a 65 year old male here for right ankle injury and follow up [facility] ER visit on 11/08/20. Approximately one week [place] and tripped and fell causing injury to the right ankle. Today he is experiencing 5 out of 10 pain. He has been taking advil PRN forpain. Denies any numbness and or tingling. Currently is in a splint and samra wrap with walking shoe provided by the ER. He is retired and is not working at this time. He was told by the emergencyroom that he has a fracture of his medial cuneiform. [facility] Medical History Afib GERD (gastroesophageal reflux disease) H/O ETOH abuse HTN (hypertension) Hypercholesteremia Myocardial infarction Surgical History Hx of CABG Social History Does the Patient have a Healthcare Proxy: Yes Does Patient have a DNR?: No Does Patient have a Living Will?: No current occupational status: retired Hx Recent Travel (where): No Smoking Status: Former smoker alcohol intake: current substance use type: does not use Review of Systems Const Denies anorexia, Denies excessive sweating, Denies fatigue, Denies fever(s), Denies headache(s), Denies weight gain and Denies weight loss Eyes Denies blurry vision, Denies change in vision, Denies dry eyes, Denies irritation, Denies itchy eyesand Denies loss of vision ENT Denies abnormal hearing, Denies dysphagia, Denies dizziness, Denies headache(s), Denies lip swelling, Denies nasal congestion, Denies nasal discharge, Denies disequilibrium, Denies sinus pain,Denies sore throat and Denies throat swelling Card Denies chest pain, Denies pedal edema, Denies lightheadedness, Denies palpitations and Denies dyspnea Resp Denies cough, Denies excessive phlegm production, Denies pain on inspiration, Denies dyspnea and Denies wheezing GI Denies abdominal pain, Denies change in bowel habits, Denies dysphagia, Denies early satiety, Deniesheartburn, Denies diarrhea, Denies nausea and Denies vomiting Denies difficulty urinating, Denies flank pain, Denies urinary frequency, Denies urinary incontinence and Denies urinary urgency Musc Denies back pain, Reports arthralgias (right ankle ), Denies limited range of motion, Denies muscle cramps and Denies muscle weakness Skin/Breast Denies breast pain, Denies change in pigmentation, Denies lesions, Denies nail changes, Denies rash and Denies unusual bruising Neuro Denies abnormal hearing, Denies dizziness, Denies headache(s), Denies loss of vision, Denies memory loss, Denies paresthesias and Denies disequilibrium Psych Denies abnormal sleep pattern, Denies anxiety, Denies change in appetite, Denies depression, Denies irritability and Denies memory loss Endo Denies cold intolerance, Denies excessive sweating, Denies fa tigue, Denies polyphagia, Denies polydipsia, Denies polyuria and Denies palpitations Damian/Lymph Denies easy bleeding, Denies easy bruising and Denies lymphadenopathy Aller/Immun Denies urticaria, Denies itchy eyes, Denies lip swelling, Denies seasonal rhinorrhea, Denies throat swelling and Denies wheezing Exam Const General: cooperative, healthy appearing, comfortable, well developed and well groomed Nutritional Appearance: average body habitus Orientation: alert, awake and oriented x3 [facility] Head: normal to inspection, normocephalic and atraumatic Eyes General: appearance normal, both eyes and all related structures Pupils: PERRL Neck Neck: normal visual inspection, full ROM and nontender Chest Chest: normal inspection of the chest Resp Effort Inspection: normal respiratory effort Skin Lesions: no lesions Rashes: no rashes Trauma: no lacerations or abrasions Neuro General: patient alert, patient awake and patient oriented x3 Cognition: normal cognition Speech: speech normal Motor: muscle tone normal throughout Extrem Other: Patient's posterior splint was removed. Patient is noted to have generalized swelling about the left foot and ankle. He has normal range of motion of the left ankle joint. He has an intact Achilles tendon and does not have tenderness about the peroneal tendons laterally or about the posterior tibial tendon medially. Patient has no medial deltoid tenderness and no tenderness laterally about the ATFL. Strength testing of the left ankle when resistance is applied to dorsiflexion, plantarflexion, inversion, and eversion is unremarkable. Peripheral pulses on the affected side are intact. Psych Appearance: grossly normal Thought Process: normal Thought Content: normal Insight: insight good Assessment Plan Assessment Plan (1) Ankle sprain: Status: Acute Code(s): S93.409A - Sprain of unspecified ligament of unspecified ankle, initial encounter SNOMED Code(s): 50898637 Category: Medical Qualifiers: Encounter type: initial encounter Involved ligament of ankle: other ligament Laterality: left Qualified Code(s): S93.492A - Sprain of other ligament of left ankle, initial encounter Plan - Suman Pressley MD: Clinical exam is consistent with an ankle sprain. The radiologist read his x-rays yesterday as being consistent with a displaced medial cuneiform fracture. Patient's x-rays were reviewed by me and he does not have a medial cuneiform fracture. There is ossification at the insertion point of the posterior tibial tendon into the tuberosity of the navicular bone. The ossification is rounded and does not have the appearance of an acute fracture. Patient was placed in a short Aircast and will be allowed to weight-bear to tolerance. Patient will follow-up with us in 2 weeks time for repeat evaluation. All questions were answered. Patient does not need to wear the boot at night. Coding Level of Care Code 01446 New Pt Extended Comp Exam Expanded Problem Focused Diagnoses Ankle sprain S93.492A Encounter type: initial encounter Involved ligament of ankle: other ligament Laterality: left <Electronically signed by Suman Pressley MD> 11/09/20 1441 Name Value Range Interpretation Code Description Data Valeri rce(s) Supporting Document(s) ID Date Data Source [id number] 11/08/2020 10:20:00 AM EDT [facility] [address] [place] [address] [phone] NAME SEX PT STATUS ACCOUNT NUMBER FRANSICO MCCLELLAND [facility] ER [id number] ORDERING PHYSICIAN LOCATION MEDICAL RECORD NO. Jason Mancilla MD ER [id number] ATTENDING PHYSICIAN DATE OF DATE OF EXAM/TIME Tyron Stewart MD 1955 11/08/20954 TYPE / EXAM Xray Foot Complete LT REASON FOR EXAM trauma TECHNIQUE: Frontal, oblique, and lateral views of the left foot. COMPARISON: None available. FINDINGS: There is a fracture of the medial aspect of the cuneiform mildly displaced. There is no dislocation. Lisfranc alignment is preserved. The joint spaces are preserved. There are no erosive or proliferative changes. Soft tissue swelling is noted. There is no radiopaque foreign body. IMPRESSION: Fracture of the medial aspect of the cuneiform. Reported By Heather Elam MD on 11/08/20 102 Signed By Heather Elam MD on 11/08/20 102 Date Time CC: Tyron Stewart M.D.; Heather Elam MD Techn: EBEBR Trans Dt/Tm: Trans by: DT Prt Dt/Tm: 2691-6424: Total DLP = 0.00 mGy-cm Fluoroscopy Time (in secs): Name Value Range Interpretation Code Description Data Valeri rce(s) Supporting Document(s) ID Date Data Source [id number] 11/08/2020 10:13:00 AM EDT [facility] [address] [place] [address] [phone] NAME SEX PT STATUS ACCOUNT NUMBER FRANSICO MCCLELLAND [facility] ER [id number] ORDERING PHYSICIAN LOCATION MEDICAL RECORD NO. Jason Mancilla MD ER [id number] ATTENDING PHYSICIAN DATE OF DATE OF EXAM/TIME Tyron Stewart MD 1955 11/08/20954 TYPE / EXAM Xray Ankle Complete LT REASON FOR EXAM trauma TECHNIQUE: 4 views of the Left ankle. COMPARISON: No relevant prior studies available. FINDINGS: Bones/joints: There appears to be a fracture of the medial aspect of cuneiform bone mildly displaced with overlying soft tissue swelling. No dislocation. The ankle mortise is normally maintained and the articular surfaces are smooth. Soft tissues: Soft tissue swelling. IMPRESSION: Fracture of the medial aspect of the cuneiform. Reported By Heather Elam MD on 11/08/20 1013 Signed By Heather Elam MD on 11/08/20 1020 Date Time CC: Tyron Stewart M.D.; Heather Elam MD Techn: EBEBR Trans Dt/Tm: Trans by: DT Prt Dt/Tm: 2108-1295: Total DLP = 0.00 mGy-cm Fluoroscopy Time (in secs): Name Value Range Interpretation Code Description Data Valeri rce(s) Supporting Document(s) ID Date Data Source [id number] 11/08/2020 09:58:00 AM EDT [facility] ED Physician Documentation NAME: FRANSICO MCCLELLAND : 1955 AGE: 65 MR#: [id number] SERVICE DATE: 11/08/[address]: Jason Mancilla MD PRIMARY CARE DR: Tyron Stewart M.D. ROOM#: [facility] (Adult, General) General Chief Complaint: Musculoskeletal Stated Complaint: ANKLE PAIN Resident LT, travel outisde home, exposure to hot tubs:: No Time Seen by Provider: 11/08/20 09:46 Source: patient Exam Limitations: no limitations History of Present Illness Initial Comments: 65-year-old white male complaining of injury to his left ankle and foot about 1 week ago. [place] his left ankle. 2 days later has noticed pain and swelling. No calf pain no difficulty breathing no chest pain no dizziness no palpitations no nausea no vomiting no fever no chills. No Covid symptoms no recent travel. Took Motrin yesterday with minimal relief Past Medical History Past Medical History: Nursing Past Medical History Has Been Reviewed Allergies/Home Meds Allergies Allergy/AdvReac Type Severity Reaction Status Date / Time Iodinated Contrast Media Allergy Unknown hives, Verified 11/08/20 09:55 [IV DYE, IODINE CONTAINING] itching (Opti-Ray 350) Home Medications Medication Instructions Recorded Confirmed Last Taken Type amlodipine 2.5 mg PO HS 05/23/16 11/08/20 06/14/16 History aspirin [Adult Low Dose Aspirin] 81 mg PO HS 05/23/16 11/08/20 06/14/16 History atorvastatin [Lipitor] 10 mg PO MOWEFR 05/23/16 11/08/20 06/12/16 History folic acid 1 mg PO DAILY 05/23/16 11/08/20 06/14/16 History lisinopril-hydrochlorothiazide 1 tab PO HS 05/23/16 11/08/20 06/14/16 History pantoprazole 20 mg PO DAILY 05/23/16 11/08/20 06/14/16 History amiodarone 200 mg PO DAILY 06/15/16 11/08/20 06/14/16 History apixaban [Eliquis*] 5 mg PO BID 06/15/16 11/08/20 06/14/16 History metoprolol tartrate 25 mg PO BID 06/15/16 11/08/20 06/14/16 History Medication list updated and reviewed:: Yes Pain Assessment Pain Location: Left foot left ankle Pain Description: Throbbing and Acute Pain Intensity: 4 Pain Scale Used: Numeric Scale Pain Radiation Location: None ER plan Plan of care and ER treatment: An ER treatment plan was discussed with patient and family, Patient encouraged to ask questions about plan and ER treatments and Patient agrees with ER plan of care PMH (from Triage) Patient Medical History PMH Reviewed/Updated as Needed: Yes PMH/PSH from Triage: Medical History (Updated 03/08/19 @ 13:05 by Lisa Peoples) Afib (Medical) I48.91 GERD (gastroesophageal reflux disease) (Medical) K21.9 H/O ETOH abuse (Medical) F10.11 HTN (hypertension) (Medical) I10 Hx of CABG (Medical) Z95.1 Hypercholesteremia (Medical) E78.00 Myocardial infarction (Medical) I21.9 Surgical History (Updated 03/08/19 @ 13:05 by Lisa Peoples) Hx of CABG (Surgical) Z95.1 Hx Drug Resistant Infections Hx MRSA: (Methicillin-resistant Staphylococcus aureus): No Hx VRE (Vancomycin-resistant enterococci): No Hx C.Diff: No Hx CRKP: No Hx Other Resistant Infection?: No Isolation: Standard precautions Hx Recent Travel Out of the country within 10 days (where): No Hx Fever: No Hx Fever with a rash?: No Social History Does patient have suicidal/homicidal thoughts or ideation?: No Are you in a relationship with/Does anyone hit you, yell/swear at you, steal from you?: No Substance Use Hx Alcohol Use: Yes Hx Substance Use: No Hx Substance Use Treatment: No Second Hand Smoke Exposure: No Smoking Status: Never smoker Tobacco Use Years smoked:: 10 Hx Chewing Tobacco Use: No Vaccination History Hx/Date of Tetanus, Diphtheria Vaccination: Yes Hx/Date of Influenza Vaccination: No Hx/Date of Pneumococcal Vaccination: No Immunizations Up to Date: Yes PFSH Medical History Afib GERD (gastroesophageal reflux disease) H/O ETOH abuse HTN (hypertension) Hypercholesteremia Myocardial infarction Surgical History Hx of CABG Social History Does the Patient have a Healthcare Proxy: Yes Does Patient have a DNR?: No Does Patient have a Living Will?: No Hx Recent Travel (where): No Smoking Status: Never smoker Sickle cell No Sickle Cell Screening:: Not indicated ROS Review of Systems Constitutional: Denies fever and chills Respiratory: Denies cough, sputum and SOB Cardiovascular: Reports edema (Left foot left ankle); Denies chest pain, palpitations and dyspnea on exertion Gastrointestinal: Denies nausea, vomiting and abdominal pain Musculoskeletal: Reports foot pain, joint swelling and joint pain; Denies neck pain Skin/Breasts: Denies rash Neurologic: Denies weakness, numbness and headache Psychiatric: Reports No Symptoms/Complaints Allergic/Immunologic: Reports No Symptoms/Complaints Physical Exam General Physical Exam Narrative: White male no acute distress Limitations: no limitations General appearance: alert and in no apparent distress Head Head exam: Present atraumatic, normocephalic and normal inspection Eye Eye exam: Present normal apperance Neck Neck exam: Present normal inspection, full ROM and supple Respiratory Respiratory exam: Absent respiratory distress and accessory muscle use Extremities Exam Extremities exam: Present other (Left foot trace pedal pedis 2+ sensation intact motor intact, swelling lateral malleolus with tenderness , tenderness also on dorsum of foot. No calf tenderness or swelling) Vital Signs Vital Signs: Vital Signs 11/08/20 09:38 Temperature 98.4 F Pulse Rate 87 Respiratory Rate 18 Blood Pressure 168/97 O2 Sat by Pulse Oximetry 96 MDM (comprehensive) Medical Decision Making Free Text/Narative:: 65-year-old white male with injury to left ankle left foot about 1 week ago complains of swelling and pain of ankle and foot X- rays ordered X-ray report reviewed patient has a mild displaced medial cuneiform fracture Injury happened 1 week ago Message left with orthopedist in the [place] In the meantime will place patient in a posterior splint Procedure note Discussed with patient risk and benefit of splint patient understood verbal consent given Timeout done Using size 4 Ortho-Glass posterior splint applied left lower extremity Patient declines crutches We will except a walking cast so Patient instructed keep leg elevated call orthopedic clinic today for appointment later tomorrow or Thursday Discharge Plan Admission/Discharge Dx Primary DC Diagnosis: Acute left medial cuneiform fracture ED Provider: Jason Mancilla ED Status: Ready for Discharge Time Seen by Provider: 11/08/20 09:46 Triaged At: 11/08/20 09:38 Condition Condition: Stable Discharge Detail Disposition: Home, Self-Care Med Rec New Prescriptions: No Action atorvastatin [Lipitor] 10 MG tablet 10 mg PO MOWEFR RF: 0 lisinopril-hydrochlorothiazide 20-12.5 mg tablet 1 tab PO HS RF: 0 aspirin [Adult Low Dose Aspirin] 81 MG tablet,delayed release (DR/EC) 81 mg PO HS RF: 0 amlodipine 10 MG tablet 2.5 mg PO HS RF: 0 pantoprazole 40 MG tablet,delayed release (DR/EC) 20 mg PO DAILY RF: 0 folic acid 1 MG tablet 1 mg PO DAILY RF: 0 amiodarone 200 MG tablet 200 mg PO DAILY RF: 0 metoprolol tartrate 25 MG tablet 25 mg PO BID RF: 0 Eliquis 5 MG tablet 5 mg PO BID RF: 0 Discharge Education P rintouts: Foot Fracture in Adults (ED) Follow Up Visit/Referrals: Suman Pressley MD [PHYSICIAN] - (Left medial cuneiform fracture occurred 1 week ago prior to ER visit) Medications Medication reconciliation performed by provider at discharge: Yes Follow Up Care/Instructions Diet/Activity/Wound Care..: Keep splint on, keep leg elevated May take Tylenol as directed for pain Call orthopedist office today for follow-up appointment either Thursday or Thursday You have declined crutches use a walking cast shoe *Discharge Patient* Discharge Orders: Discharge Order (Routine); Ordered 11/08/20 Ordered By: Jason Mancilla Report Signers: <Electronically signed by Jason Mancilla MD> Jason Mancilla MD 11/08/20 1108 Jason Mancilla MD SIGNATURE DA Report Cosigners: D: DIBMI 11/08/20957 T: DIBMI 11/08/20957 CC: Tyron Stewart M.D. Name Value Range Interpretation Code Description Data Valeri rce(s) Supporting Document(s) ID Date Data Source CBC - Complete Blood Count 06/25/2020 12:00:00 AM EST eCW1 ( [facility]) Name Value Range Interpretation Code Description Data Valeri rce(s) Supporting Document(s) 7.8 4.0-10.0 WHITE BLOOD COUNT eCW1 ([facility]) 17.2 13.5-17.5 HEMOGLOBIN eCW1 ([facility]) 93.7 80.0-96.0 MEAN CORPUSCULAR VOLUME e CW1 ([facility]) 5.52 4.30-6.10 RED BLOOD COUNT eCW1 ([facility]) 51.7 42.0-52.0 HEMATOCRIT eCW1 ([facility]) 31.2 27.0-33.0 MEAN CORPUSCULAR HEMOGLOB IN eCW1 ([facility]) 12.8 11.5-14.5 RED CELL DISTRIBUTION WID TH eCW1 ([facility]) 33.3 32.0-36.5 MEAN CORPUSCULAR HGB CONC eCW1 ([facility]) 173 150-450 PLATELET COUNT, AUTOMATED eCW1 ([facility]) Procedure Social History Code Duration Value Status Description Data Source(s ) Smoking 12/31/2020 12:00:00 AM EDT Current Smoker completed Curre nt Smoker eCW1 ([facility]) 11/09/2020 01:58:46 PM EDT Former smoker completed Former smoker [facility] Smoking 11/09/2020 01:58:00 PM EDT Former smoker completed Former smoker [facility] 11/08/2020 10:07:23 AM EDT No completed No [facility] 11/08/2020 10:07:23 AM EDT Yes completed Yes [facility] 11/08/2020 10:07:23 AM EDT No completed No [facility] 11/08/2020 10:07:23 AM EDT Yes completed Yes [facility] 11/08/2020 10:07:23 AM EDT Never smoker completed Never s [facility] Smoking 11/08/2020 10:07:00 AM EDT Never smoker completed Never [facility] Smoking 08/16/2020 12:00:00 AM EST Patient is a former smoker completed Patient is a former smoker [facility] ([facility]) Smoking 06/26/2020 12:00:00 AM EST Current Smoker completed Curre nt Smoker eCW1 ([facility]) Smoking 06/26/2020 12:00:00 AM EST Current Smoker completed Curre nt Smoker eCW1 ([facility]) Vital Signs ID Date Data Source UNK Name Value Range Interpretation Code Description Data Source(s) Body temperature 98.7 [degF] 98.7 [degF] [facility] ([facility]) Body height 67 [in_i] 67 [in_i] [facility] ([facility]) 5'7" Body weight 189.12 [lb_av] 189.12 [lb_av] [facility] Body mass index (BMI) [Ratio] 29.6 kg/m2 29.6 k g/m2 [facility] ([facility]) [place] body weight 148 [lb_av] 148 [lb_av] [facility] ([facility]) Body weight 85.787 kg 85.787 kg [facility] ([facility]) Body surface area Derived from formula 1.97 m2 1.97 m2 [facility] ([facility]) Systolic blood pressure 147 mm[Hg] 147 mm[Hg] [facility] ([facility]) Diastolic blood pressure 83 mm[Hg] 83 mm[Hg] [facility] ([facility]) Heart rate 56 /min 56 /min [facility] Body weight 189.8 [lb_av] 189.8 [lb_av] eCW1 ([facility]) Systolic blood pressure 162 mm[Hg] 162 mm[Hg] e CW1 ([facility]) Diastolic blood pressure 100 mm[Hg] 100 mm[Hg] eCW1 ([facility]) Body height 66 [in_i] 66 [in_i] eCW1 ([facility]) Body mass index (BMI) [Ratio] 30.63 kg/m2 30.63 kg/m2 eCW1 ([facility]) Heart rate 96 /min 96 /min eCW1 ([facility]) Respiratory rate 18 /min 18 /min eCW1 ([facility]) Body temperature 98.1 [degF] 98.1 [degF] eCW1 ( [facility]) Systolic blood pressure 118 mm[Hg] 118 mm[Hg] M EDENT ([facility], ) Diastolic blood pressure 84 mm[Hg] 84 mm[Hg] [facility] ([facility]) Heart rate 87 /min 87 /min [facility] ([facility]) Oxygen saturation in Arterial blood by Pulse oximetry 96 % 96 % [facility] ([facility]) Body temperature 96.9 [degF] 96.9 [degF] [facility] ([facility]) Body height 67 [in_i] 67 [in_i] [facility] ([facility]) 5'7" Body weight 197.00 [lb_av] 197.00 [lb_av] [facility] ([facility]) Body mass index (BMI) [Ratio] 30.9 kg/m2 30.9 k g/m2 [facility] ([facility]) [place] body weight 148 [lb_av] 148 [lb_av] [facility] ([facility]) Body weight 89.359 kg 89.359 kg [facility] ([facility]) Body surface area Derived from formula 2.01 m2 2.01 m2 [facility] ([facility]) Diastolic blood pressure 84 mm[Hg] 84 mm[Hg] [facility] ([facility]) Body height 66 [in_i] 66 [in_i] [facility] 5'6" Body weight 195.38 [lb_av] 195.38 [lb_av] [facility] ([facility]) Body mass index (BMI) [Ratio] 31.5 kg/m2 31.5 k g/m2 [facility] ([facility]) Systolic blood pressure 130 mm[Hg] 130 mm[Hg] [facility] ([facility]) Heart rate 68 /min 68 /min [facility] ([facility]) Body mass index (BMI) [Ratio] 31.79 kg/m2 31.79 kg/m2 eCW1 ([facility]) Body weight 197 [lb_av] 197 [lb_av] eCW1 ([facility]placed by [facility]) Body height 66 [in_i] 66 [in_i] eCW1 ([facility]) Respiratory rate 18 /min 18 /min eCW1 ([facility]) Body temperature 98 [degF] 98 [degF] eCW1 ([facility]) Systolic blood pressure 140 mm[Hg] 140 mm[Hg] e CW1 ([facility]) Diastolic blood pressure 88 mm[Hg] 88 mm[Hg] eCW1 ([facility]) Heart rate 70 /min 70 /min eCW1 ([facility]) Patient Treatment Plan of Care Planned Activity Planned Date Details Description Data Source (s) Chantix Starting Month Saran 0.5 MG X 11 & 1 MG X 42 06/25/2020 12 :00:00 AM EST eCW1 ([facility]) Chantix Starting Month Saran 0.5 MG X 11 & 1 MG X 42 06/25/2020 12 :00:00 AM EST eCW1 ([facility])
[2021-07-01] MEDS ORDERED: fentaNYL 100 MCG/2 ML INJECTION (J3010) As Ordered ONE (09:00)
[2021-07-01] MEDS ORDERED: ePHEDrine SULFATE 25 MG/5 ML(5MG/ML) SYRINGE As Ordered ONE (09:09)
--- NOTE | 2021-07-01 09:09 | ROOR ---
Patient Name: Duane Ruiz Procedure Date: 07/01/2021 8:57 AM Date of : 1955 Age: 66 Room: [facility] Gender: Male Note Status: Finalized Procedure: Upper GI endoscopy Indications: Suspected esophageal reflux Providers: Jaxson Brady Jr, MD Referring MD: Tyron Stewart MD Requesting Provider: Medicines: Propofol per Anesthesia Complications: No immediate complications. Procedure: Pre-Anesthesia Assessment: - Prior to the procedure, a History and Physical was performed, and patient medications and allergies were reviewed. The patient is competent. The risks and benefits of the procedure and the sedation options and risks were discussed with the patient. All questions were answered and informed consent was obtained. Patient identification and proposed procedure were verified by the physician and the nurse in the pre-procedure area and in the procedure room. Mental Status Examination: alert and oriented. Airway Examination: normal oropharyngeal airway and neck mobility. Respiratory Examination: clear to auscultation. CV Examination: normal. ASA Grade Assessment: II - A patient with mild systemic disease. After reviewing the risks and benefits, the patient was deemed in satisfactory condition to undergo the procedure. The anesthesia plan was to use moderate sedation / analgesia (conscious sedation). Immediately prior to administration of medications, the patient was re-assessed for adequacy to receive sedatives. The heart rate, respiratory rate, oxygen saturations, blood pressure, adequacy of pulmonary ventilation, and response to care were monitored throughout the procedure. The physical status of the patient was re-assessed after the procedure. The Endoscope was introduced through the mouth, and advanced to the second part of duodenum. The upper GI endoscopy was accomplished without difficulty. The patient tolerated the procedure well. Findings: The upper third of the esophagus, middle third of the esophagus and lower third of the esophagus were normal. The cardia and gastric body were normal. Diffuse moderately erythematous mucosa without bleeding was found in the gastric antrum and in the prepyloric region of the stomach. Biopsies were taken with a cold forceps for histology. The duodenal bulb, first portion of the duodenum and second portion of the duodenum were normal. Impression: - Normal upper third of esophagus, middle third of esophagus and lower third of esophagus. - Normal cardia and gastric body. - Erythematous mucosa in the antrum and prepyloric region of the stomach. Biopsied. - Normal duodenal bulb, first portion of the duodenum and second portion of the duodenum. Recommendation: - Discharge patient to home (ambulatory). - Return to my office as previously scheduled. Procedure Code(s): --- Professional --- 36008, Esophagogastroduodenoscopy, flexible, transoral; with biopsy, single or multiple Diagnosis Code(s): --- Professional --- K31.89, Other diseases of stomach and duodenum CPT copyright 2019 [employer]. All rights reserved. The codes documented in this report are preliminary and upon grievance manager review may be revised to meet current compliance requirements. Jaxson Brady MD Jaxson Brady Jr, MD 07/01/2021 9:08:56 AM Electronically signed by Jaxson Brady Jr, MD Number of Addenda: 0 Note Initiated On: 07/01/2021 8:57 AM Estimated Blood Loss: Estimated blood loss: none.
--- NOTE | 2021-07-01 09:19 | ROOR ---
Patient Name: Duane Ruiz Procedure Date: 07/01/2021 8:58 AM Date of : 1955 Age: 66 Room: [facility] Gender: Male Note Status: Finalized Procedure: Colonoscopy Indications: Screening for colorectal malignant neoplasm Providers: Jaxson Brady Jr, MD Referring MD: Tyron Stewart MD Requesting Provider: Medicines: Propofol per Anesthesia Complications: No immediate complications. Procedure: Pre-Anesthesia Assessment: - Prior to the procedure, a History and Physical was performed, and patient medications and allergies were reviewed. The patient is competent. The risks and benefits of the procedure and the sedation options and risks were discussed with the patient. All questions were answered and informed consent was obtained. Patient identification and proposed procedure were verified by the physician and the nurse in the pre-procedure area and in the procedure room. Mental Status Examination: alert and oriented. Airway Examination: normal oropharyngeal airway and neck mobility. Respiratory Examination: clear to auscultation. CV Examination: normal. ASA Grade Assessment: II - A patient with mild systemic disease. After reviewing the risks and benefits, the patient was deemed in satisfactory condition to undergo the procedure. The anesthesia plan was to use moderate sedation / analgesia (conscious sedation). Immediately prior to administration of medications, the patient was re-assessed for adequacy to receive sedatives. The heart rate, respiratory rate, oxygen saturations, blood pressure, adequacy of pulmonary ventilation, and response to care were monitored throughout the procedure. The physical status of the patient was re-assessed after the procedure. The Colonoscope was introduced through the anus and advanced to the cecum, identified by appendiceal orifice and ileocecal valve. The colonoscopy was performed without difficulty. The patient tolerated the procedure well. The quality of the bowel preparation was adequate. Findings: The rectum, sigmoid colon, descending colon, transverse colon, ascending colon, cecum, appendiceal orifice and ileocecal valve appeared normal. Impression: - The rectum, sigmoid colon, descending colon, transverse colon, ascending colon, cecum, appendiceal orifice and ileocecal valve are normal. - No specimens collected. Recommendation: - Discharge patient to home (ambulatory). - Repeat colonoscopy in 10 years for screening purposes. Procedure Code(s): --- Professional --- 17263, Colonoscopy, flexible; diagnostic, including collection of specimen(s) by brushing or washing, when performed (separate procedure) Diagnosis Code(s): --- Professional --- Z12.11, Encounter for screening for malignant neoplasm of colon CPT copyright 2019 [employer]. All rights reserved. The codes documented in this report are preliminary and upon production technician review may be revised to meet current compliance requirements. Jaxson Brady MD Jaxson Brady Jr, MD 07/01/2021 9:18:47 AM Electronically signed by Jaxson Bardy Jr, MD Number of Addenda: 0 Note Initiated On: 07/01/2021 8:58 AM Estimated Blood Loss: Estimated blood loss: none.
[2021-07-01 09:51] VITALS: BP 175/89
== END 2021-07-01 10:15 | disposition home or self-care (01) ==
LOC: M OPP 08:01
PROVIDERS: ATTEND Surgery
DX: Z12.11 Encounter for screening for malignant neoplasm of colon (principal); K29.50 Unspecified chronic gastritis without bleeding; R12 Heartburn; Z79.82 Long term (current) use of aspirin; Z79.899 Other long term (current) drug therapy; Z91.041 Radiographic dye allergy status; Z87.891 Personal history of nicotine dependence
CPT/HCPCS: 43239; 88305; 88342; G0121; J3010

== ENCOUNTER → 2021-07-02 | Outpatient (CLI) | payer MEDICARE ==
[~2021-07-02] MED LIST changes: -LIDOCAINE 2% 100MG/5ML SDV (FOR ANES.) As Ordered ONE; -NS 1,000 ML IV ONE; -propofoL 200 MG/20 ML VIAL As Ordered ONE
[2021-07-02 11:37] LABS: BASO % 0.4 % (0.0-1.0); EOS # 0.3 10^3/uL (0.0-0.5); EOS % 3.9 % (0.0-3.0); HEMATOCRIT 51.9 % (42.0-52.0); HEMOGLOBIN 17.5 g/dl (13.5-17.5); LYMPH # 1.8 10^3/uL (1.5-5.0); LYMPH % 24.1 % (24.0-44.0); MEAN CORPUSCULAR HEMOGLOBIN 31.4 pg (27.0-33.0); MEAN CORPUSCULAR HGB CONC 33.7 g/dl (32.0-36.5); MEAN CORPUSCULAR VOLUME 93.2 fl (80.0-96.0); MONO # 0.9 10^3/uL (0.0-0.8); NEUTROPHILS # 4.4 10^3/uL (1.5-8.5); NEUTROPHILS % 59.5 % (36.0-66.0); PLATELET COUNT, AUTOMATED 197 10^3/uL (150-450); RED BLOOD COUNT 5.57 10^6/uL (4.30-6.10); WHITE BLOOD COUNT 7.4 10^3/uL (4.0-10.0)
[2021-07-02 12:09] LABS: HEMOGLOBIN A1c 5.6 %
[2021-07-02 12:19] LABS: ALT/SGPT 42 U/L (12-78); BILIRUBIN,TOTAL 0.4 MG/DL (0.2-1.0); BLOOD UREA NITROGEN 21 MG/DL (7-18); CALCIUM LEVEL 9.2 MG/DL (8.8-10.2); CARBON DIOXIDE LEVEL 29 MEQ/L (21-32); CHLORIDE LEVEL 106 MEQ/L (98-107); CHOLESTEROL LEVEL 197 MG/DL (<200); CHOLESTEROL RISK RATIO 5.794 (<5); CREATININE FOR GFR 1.12 MG/DL (0.70-1.30); GLOMERULAR FILTRATION RATE > 60.0 (>49); GLUCOSE, FASTING 113 MG/DL (70-100); HDL CHOLESTEROL 34 MG/DL (>40); NON-HDL-C 163 MG/DL; POTASSIUM SERUM 5.8 MEQ/L (3.5-5.1); SODIUM LEVEL 139 MEQ/L (136-145); TRIGLYCERIDES LEVEL 183 MG/DL (<150)
[2021-07-02 12:20] LABS: LDL CHOLESTEROL 126 MG/DL (<100); MAGNESIUM LEVEL 2.3 MG/DL (1.8-2.4); PROSTATIC SPECIFIC AG MONITOR 3.48 NG/ML (< 4.00); TOTAL PROTEIN 7.9 GM/DL (6.4-8.2)
== END ==
LOC: M PLALAB 08:33
PROVIDERS: ATTEND Internal Medicine
DX: R73.01 Impaired fasting glucose (principal); I10 Essential (primary) hypertension; E78.00 Pure hypercholesterolemia, unspecified; G47.30 Sleep apnea, unspecified; R97.20 Elevated prostate specific antigen [PSA]; F34.1 Dysthymic disorder

== ENCOUNTER → 2022-09-09 | Outpatient (CLI) | payer OTHER | LOC: M RAD 15:39 | PROVIDERS: ATTEND Internal Medicine Hematology | DX: Z12.2 Encounter for screening for malignant neoplasm of respiratory organs (principal); J91.8 Pleural effusion in other conditions classified elsewhere; F17.201 Nicotine dependence, unspecified, in remission ==

== ENCOUNTER → 2022-09-22 | Outpatient (CLI) | payer OTHER | LOC: M RAD 07:45 | PROVIDERS: ATTEND Internal Medicine Hematology | DX: R91.8 Other nonspecific abnormal finding of lung field (principal); D49.2 Neoplasm of unspecified behavior of bone, soft tissue, and skin; J90 Pleural effusion, not elsewhere classified ==

== ENCOUNTER → 2023-01-26 | Outpatient (CLI) | payer OTHER ==
[2023-01-26 11:55] LABS: ALBUMIN 3.8 G/DL (3.2-5.2); ALKALINE PHOSPHATASE 97 U/L (46-116); ALT/SGPT 50 U/L (7.0-40); AST/SGOT 19 U/L (<34); BILIRUBIN,TOTAL 0.3 MG/DL (0.3-1.2); BLOOD UREA NITROGEN 20 MG/DL (9-23); C REACTIVE PROTEIN QUANTITATIV < 0.40 MG/DL (<1.0); CALCIUM LEVEL 8.9 MG/DL (8.3-10.6); CARBON DIOXIDE LEVEL 30 MMOL/L (20-31); CHLORIDE LEVEL 107 MMOL/L (98-107); CHOLESTEROL LEVEL 126 MG/DL (<200); CHOLESTEROL RISK RATIO 3.08 (<5); CREATININE FOR GFR 1.05 MG/DL (0.70-1.30); GLOMERULAR FILTRATION RATE > 60.0 (>49); GLUCOSE, FASTING 110 MG/DL (74-106); HDL CHOLESTEROL 40.8 MG/DL (>40); HEMOGLOBIN 16.9 g/dl (13.5-17.5); LDL CHOLESTEROL 71.8 MG/DL (<100); MEAN CORPUSCULAR HEMOGLOBIN 30.7 pg (27.0-33.0); MEAN CORPUSCULAR HGB CONC 33.1 g/dl (32.0-36.5); MEAN CORPUSCULAR VOLUME 92.6 fl (80.0-96.0); NON-HDL-C 85.2 MG/DL; PLATELET COUNT, AUTOMATED 189 10^3/uL (150-450); RED BLOOD COUNT 5.51 10^6/uL (4.30-6.10); SODIUM LEVEL 142 MMOL/L (136-145); TOTAL PROTEIN 7.3 G/DL (5.7-8.2); TRIGLYCERIDES LEVEL 67 MG/DL (<150); WHITE BLOOD COUNT 6.9 10^3/uL (4.0-10.0)
[2023-01-26 11:57] LABS: FREE T4 0.93 NG/DL (0.89-1.76); THYROID STIMULATING HORMONE 1.898 uIU/ML (0.55-4.78); TOTAL 25(OH) VITAMIN D 37.4 NG/ML (20.0-100.0); VITAMIN B12 LEVEL 439 PG/ML (211-911)
[2023-01-26 12:13] LABS: HEMOGLOBIN A1c 5.9 % (4.0-6.0)
[2023-01-26 12:21] LABS: CREATININE, URINE 39.1 MG/DL; MALB URINE SIEMENS < 3.0 MG/L; MAU/CREAT RATIO 7.6 MCG/MG (0.0-30.0)
== END ==
LOC: M PLALAB 07:52
PROVIDERS: ATTEND Internal Medicine Hematology
DX: I25.10 Atherosclerotic heart disease of native coronary artery without angina pectoris (principal); Z79.899 Other long term (current) drug therapy; Z12.9 Encounter for screening for malignant neoplasm, site unspecified

== ENCOUNTER → 2023-12-29 | Outpatient (CLI) | payer OTHER ==
[~2023-12-29] MED LIST changes: -ROSU10TA6 PO; +ROSU10TA61 PO
== END ==
LOC: M RAD 06:22
PROVIDERS: ATTEND Internal Medicine Hematology
DX: Z12.2 Encounter for screening for malignant neoplasm of respiratory organs (principal); Z87.891 Personal history of nicotine dependence; I25.10 Atherosclerotic heart disease of native coronary artery without angina pectoris; Z95.2 Presence of prosthetic heart valve

== ENCOUNTER → 2024-01-18 | Outpatient (REF) | payer OTHER ==
[2024-01-18 18:03] LABS: BASO % 0.4 % (0.0-1.0); EOS # 0.4 10^3/uL (0.0-0.5); EOS % 3.8 % (0.0-3.0); HEMATOCRIT 51.8 % (42.0-52.0); HEMOGLOBIN 17.3 g/dl (13.5-17.5); LYMPH # 1.4 10^3/uL (1.5-5.0); LYMPH % 14.8 % (24.0-44.0); MEAN CORPUSCULAR HEMOGLOBIN 30.8 pg (27.0-33.0); MEAN CORPUSCULAR HGB CONC 33.4 g/dl (32.0-36.5); MEAN CORPUSCULAR VOLUME 92.3 fl (80.0-96.0); MONO # 1.1 10^3/uL (0.0-0.8); MONO % 11.6 % (2.0-8.0); NEUTROPHILS # 6.4 10^3/uL (1.5-8.5); NEUTROPHILS % 68.9 % (36.0-66.0); PLATELET COUNT, AUTOMATED 180 10^3/uL (150-450); RED BLOOD COUNT 5.61 10^6/uL (4.30-6.10); WHITE BLOOD COUNT 9.2 10^3/uL (4.0-10.0)
[2024-01-18 18:37] LABS: CREATININE, URINE 44.4 MG/DL; MALB URINE SIEMENS < 3.0 MG/L; MAU/CREAT RATIO 6.7 MCG/MG (0.0-30.0)
[2024-01-18 18:38] LABS: C REACTIVE PROTEIN QUANTITATIV < 0.40 MG/DL (<1.0)
[2024-01-18 18:40] LABS: ALBUMIN 4.2 G/DL (3.2-5.2); ALKALINE PHOSPHATASE 83 U/L (46-116); ALT/SGPT 103 U/L (7.0-40); AST/SGOT 69 U/L (<34); BILIRUBIN,TOTAL 0.4 MG/DL (0.3-1.2); BLOOD UREA NITROGEN 23 MG/DL (9-23); CALCIUM LEVEL 9.5 MG/DL (8.3-10.6); CARBON DIOXIDE LEVEL 30 MMOL/L (20-31); CHLORIDE LEVEL 105 MMOL/L (98-107); CHOLESTEROL LEVEL 168 MG/DL (<200); CREATININE FOR GFR 1.34 MG/DL (0.70-1.30); GLOMERULAR FILTRATION RATE 56.4 (>49); GLUCOSE, FASTING 88 MG/DL (74-106); HDL CHOLESTEROL 38.1 MG/DL (>40); LDL CHOLESTEROL 84.7 MG/DL (<100); NON-HDL-C 129.9 MG/DL; POTASSIUM SERUM 4.6 MMOL/L (3.5-5.1); PSA SCREENING 1.35 NG/ML (< 4.00); SODIUM LEVEL 140 MMOL/L (136-145); TOTAL PROTEIN 7.4 G/DL (5.7-8.2); TRIGLYCERIDES LEVEL 226 MG/DL (<150)
[2024-01-18 18:41] LABS: TOTAL 25(OH) VITAMIN D 25.8 NG/ML (20.0-100.0); VITAMIN B12 LEVEL 418 PG/ML (211-911)
[2024-01-18 18:42] LABS: FREE T4 1.14 NG/DL (0.89-1.76); THYROID STIMULATING HORMONE 2.451 uIU/ML (0.55-4.78)
[2024-01-18 20:06] LABS: HEMOGLOBIN A1c 5.7 % (4.0-6.0)
== END ==
LOC: M PLALAB 16:53
PROVIDERS: ATTEND Internal Medicine Hematology
DX: I25.10 Atherosclerotic heart disease of native coronary artery without angina pectoris (principal); Z12.5 Encounter for screening for malignant neoplasm of prostate; Z79.899 Other long term (current) drug therapy
CPT/HCPCS: 36415; 80053; 80061; 82043; 82306; 82607; 83036; 84439; 84443; 85025; 86140; G0103

== ENCOUNTER → 2025-06-13 | Outpatient (REF) | payer MEDICARE ==
[~2025-06-13] MED LIST changes: -MULT200T7 PO; +MULT200T9 PO; -ROSU10TA61 PO; +ROSU10TA90 PO
[2025-06-13 11:36] LABS: PLATELET COUNT, AUTOMATED 175 10^3/uL (150-450)
[2025-06-13 11:59] LABS: ALT/SGPT 100.0 U/L (7.0-40); AST/SGOT 71.0 U/L (<34); CALCIUM LEVEL 9.3 MG/DL (8.3-10.6); CARBON DIOXIDE LEVEL 29.0 MMOL/L (20-31); CHLORIDE LEVEL 103.0 MMOL/L (98-107); CHOLESTEROL LEVEL 164.0 MG/DL (<200); CHOLESTEROL RISK RATIO 4.08 (<5); CREATININE FOR GFR 1.27 MG/DL (0.70-1.30); GLOMERULAR FILTRATION RATE 60.8 (>42); LDL CHOLESTEROL 90.3 MG/DL (<100); NON-HDL-C 123.9 MG/DL; POTASSIUM SERUM 5.1 MMOL/L (3.5-5.1); SODIUM LEVEL 140.0 MMOL/L (136-145); TRIGLYCERIDES LEVEL 168.0 MG/DL (<150)
[2025-06-13 12:00] LABS: FREE T4 1.09 NG/DL (0.89-1.76)
[2025-06-13 12:01] LABS: ESTIMATED AVERAGE GLUCOSE 120.0 MG/DL (60-110)
== END ==
LOC: M SFHCPLAZ 07:50
PROVIDERS: ATTEND Family Medicine
DX: Z00.00 Encounter for general adult medical examination without abnormal findings (principal); I10 Essential (primary) hypertension; Z79.899 Other long term (current) drug therapy